=== PATIENT | female | born 1945 | race Caucasian/White ===

== ENCOUNTER 2017-07-20 09:28 | Outpatient (CLI) | payer MEDICARE ==
--- NOTE | 2017-07-20 11:54 | MMO ---
BILATERAL DIGITAL SCREENING MAMMOGRAMS: History: 71-year-old female presents for digital screening mammography. Comparison: 06-04-16, 05-02-15, 03-30-12 This study is interpreted with the assistance of computer aided detection. FINDINGS: Scattered areas of fibroglandular density are noted bilaterally. Stable typically benign calcificati ons. Stable parenchymal density asymmetry in the left breast. IMPRESSION: BIRADS category 2 - benign findings. Continued routine screening. POS: [facility]
== END 2017-07-20 09:29 | disposition home or self-care (01) ==
LOC: SCSMAMMO 09:28
PROVIDERS: ATTEND Nurse Practitioner Family
DX: Z12.31 Encounter for screening mammogram for malignant neoplasm of breast (principal)
CPT/HCPCS: 77067; G0202

== ENCOUNTER 2018-02-02 10:11 | Outpatient (CLI) | payer MEDICARE ==
--- NOTE | 2018-02-02 11:17 | RAD ---
TWO VIEWS OF BILATREAL HIPS: COMPARISON: None. HISTORY: Bilateral hip pain. FINDINGS: AP and frogleg views of both hips show no evidence of acute fracture or dislocation. No degenerative changes are seen. No focal soft tissue swelling is present. IMPRESSION: No evidence of acute osseous abnormality. POS: [facility]
--- NOTE | 2018-02-02 11:19 | RAD ---
LUMBAR SPINE 3 VIEWS: Date: 02/02/18 HISTORY: 72-year-old female with history of low back pain. FINDINGS: There is some generalized spondylosis with disc osteophytosis and facet arthrosis. There is moderate anterolisthesis of L4 on L5 of approximately 0.9 cm. Very mild anterolisthesis of L3 on L4. No eviden ce for acute compression fracture. No focal bone lesion. IMPRESSION: Anterolisthesis of L4 on L5, and minute anterolisthesis of L3 on L4. Consider follow-up standing flex ion and extension views for further assessment of this. Disc space narrowing at L4-L5. Generalized sp ondylosis. No acute fracture. POS: [facility]
--- NOTE | 2018-02-02 11:32 | RAD ---
RIGHT KNEE 4 VIEWS: Date: 02/02/18 COMPARISON: 07/29/16. HISTORY: Pain. FINDINGS: No significant joint effusion. Mild tricompartmental degenerative change. No fracture or malalignment . IMPRESSION: Mild tricompartmental degenerative change. POS: [facility]
== END 2018-02-02 10:12 | disposition home or self-care (01) ==
LOC: RAD-FRANK 10:11
PROVIDERS: ATTEND Nurse Practitioner Family
DX: M25.561 Pain in right knee (principal); M25.552 Pain in left hip; M25.551 Pain in right hip; M54.5 Low back pain; M47.896 Other spondylosis, lumbar region; M48.061 Spinal stenosis, lumbar region without neurogenic claudication; M43.16 Spondylolisthesis, lumbar region
CPT/HCPCS: 72100; 73521

== ENCOUNTER 2018-04-11 14:24 | Outpatient (CLI) | payer MEDICARE | END 2018-04-11 14:25 | disposition home or self-care (01) | LOC: CTENTCT 14:24 | PROVIDERS: ATTEND Specialist | DX: J32.8 Other chronic sinusitis (principal) | CPT/HCPCS: 70486 ==

== ENCOUNTER 2018-07-21 11:33 | Outpatient (CLI) | payer MEDICARE | END 2018-07-21 11:34 | disposition home or self-care (01) | LOC: BICMAMMO 11:33 | PROVIDERS: ATTEND Nurse Practitioner Family | DX: Z12.31 Encounter for screening mammogram for malignant neoplasm of breast (principal) | CPT/HCPCS: 77063; 77067 ==

== ENCOUNTER 2018-08-03 08:26 | Outpatient (CLI) | payer MEDICARE ==
--- NOTE | 2018-08-03 09:50 | BD ---
DEXA BONE MINERAL DENSITOMETRY STUDY: DATE: 08/03/2018. HISTORY: Asymptomatic postmenopausal state. FINDINGS: Lumbar Spine: BMD (g/cm2) L1 0.94 T-Score: -0.5 Z-Score: 1.5 L2 1.009 T-Score: -0.2 Z-Score: 1.9 L3 0.989 T-Score: -0.9 Z-Score: 1.4 L4 0.907 T-Score: -1.4 Z-Score: 0.9 L1-L4 0.958 T-Score: -0.8 Z-Score: 1.3 Femoral Neck: 0.756 T-Score: -0.8 Z-Score: 1.0 Total Femur: 1.056 T-Score: 0.9 Z-Score: 2.5 Impression: Normal bone mineralization of the lumbar spine and left femoral neck. POS: [facility]
== END 2018-08-03 08:27 | disposition home or self-care (01) ==
LOC: BICMAMMO 08:26
PROVIDERS: ATTEND Nurse Practitioner Family
DX: Z13.820 Encounter for screening for osteoporosis (principal); Z78.0 Asymptomatic menopausal state
CPT/HCPCS: 77080

== ENCOUNTER 2018-12-22 14:19 | Outpatient (CLI) | payer MEDICARE ==
--- NOTE | 2018-12-22 15:17 | RAD ---
F4 views lumbar spine: 12/22/2018 HISTORY: Back pain, fall, bilateral lower extremity radiculopathy FINDINGS: Neutral lateral imaging with weightbearing demonstrates anterolisthesis at L3-4 measuring 9 -10 mm and at L4-5 measuring approximately 1.7 cm. Facet hypertrophy noted at L3-4, L4-5, and L5-S1. The flexion imaging demonstrates anterolisthesis at L3-4 measuring 1 cm and at L4-5 measuring 1.4 cm. On the extension imaging the anterolisthesis at L3-4 measures 1.2 cm and at L4-5 measures 1.5 cm. No acute fracture. IMPRESSION: Significant anterolisthesis at L3-4 and L4-5 with associated facet hypertrophic change.
--- NOTE | 2018-12-22 15:45 | MRI ---
MR LUMBAR SPINE WITHOUT CONTRAST: 12/22/17 INDICATION: 73-year-old female with left sided radiculopathy with low back pain. COMPARISON: Prior MR lumbar spine dated 04/21/06 from [facility]. FINDINGS: As seen on the comparison examination, grade I anterolisthesis of L4 on L5. There has been interval d evelopment of grade I anterolisthesis of L3 on L4. The conus is seen to terminate at L1. The visualiz ed retroperitoneum and perivertebral soft tissues appear within normal limits. At L5-S1, there is a broad based bulge with moderate right and mild left facet joint degenerative fei nge which have mildly progressed from the prior exam. There is no appreciable central canal narrowing . There is mild right neural foraminal narrowing which appears stable due to the facet hypertrophy an d broad based disc bulge. At L4-5, there is advanced facet joint degenerative change and grade I anterolisthesis. There is a br oad based pseudobulge with ligamentum flavum hypertrophy and facet hypertrophy inducting moderate tushar tral canal narrowing which has mildly progressed. Loss of disc space height in addition to the listhe sis induces moderate right and mild left neural foraminal narrowing which have mildly progressed from the prior exam. At L3-4, there is a broad based disc bulge with a superimposed right paracentral disc protrusion caus ing severe central canal narrowing. This is new from the prior exam. There is advanced facet joint de generative change with grade I anterolisthesis. Constellation of findings induces moderate right and mild left neural foraminal narrowing. At L2-3, there is moderate facet joint degenerative change and broad based bulge with mild bilateral neural foraminal narrowing. Here is also mild central canal narrowing at this level. At L1-2, there is mild facet joint degenerative change and mild broad based bulge but no appreciable central canal or neural foraminal narrowing. At T12-L1, there is no appreciable central canal or neural foraminal narrowing. IMPRESSION: Severe central canal narrowing at L3-4, due to broad based disc bulge with a superimposed right parac entral disc protrusion. There is also worsening moderate right and mild left neural foraminal narrowi ng at L3-4. Worsening moderate central canal narrowing at L4-5 with worsening moderate right and mild left neural foraminal narrowing at L4-5. POS: [facility]
== END 2018-12-22 14:20 | disposition home or self-care (01) ==
LOC: BICMRI 14:19
PROVIDERS: ATTEND Surgery
DX: M51.16 Intervertebral disc disorders with radiculopathy, lumbar region (principal); M48.061 Spinal stenosis, lumbar region without neurogenic claudication; M43.16 Spondylolisthesis, lumbar region; M47.26 Other spondylosis with radiculopathy, lumbar region
CPT/HCPCS: 72120; 72148

== ENCOUNTER 2019-02-01 09:51 | Outpatient (CLI) | payer MEDICARE ==
--- NOTE | 2019-02-01 11:08 | CT ---
CT LUMBAR SPINE: INDICATIONS: Low back pain. Lumbar stenosis. Radiculopathy. Herniated nucleus pulposus. CORRELATION: MRI of lumbar spine from 12/22/2018. TECHNIQUE: Multiple axial tomograms obtained through the lumbar spine with multiplanar reconstruction. FINDINGS: The lumbar vertebrae maintain height. There is an anterolisthesis seen at L3-L4 and at L4-L5, both m easured at approximately 5 mm in the sagittal plane. Loss of disk space at both these levels. At L1-L2, no significant disk bulge or protrusion. Mild facet hypertrophy. No significant central c anal stenosis. At L2-L3, broad-based disk bulge. Facet and ligamentous hypertrophy. Moderate central canal stenosi s. At L3-L4, slight anterolisthesis, as noted above. Prominent, diffuse broad-based disk bulge/protrusi on, which was described on recent MRI of 12/22/2018. Facet and ligamentous hypertrophy. Severe cent ral canal stenosis. Bilateral foraminal stenosis secondary to diffuse disk bulge extending into the foramina and associated facet hypertrophy. At L4-L5, anterolisthesis, as noted above. Diffuse broad-based disk bulge. Facet and ligamentous hy pertrophy. Severe central canal stenosis. Bilateral foraminal stenosis secondary to diffuse disk bu lge and hypertrophic change. At L5-S1, broad-based bulge abuts both traversing S1 nerve roots, slightly more prominent on the righ t. This flattens the anterior thecal sac. Facet hypertrophy is prominent. Mild central canal steno sis. Mild right foraminal stenosis secondary to disk bulge and facet hypertrophy. IMPRESSION: Severe central canal stenosis at L3-L4 and at L4-L5, as described above. POS: [facility]
== END 2019-02-01 09:52 | disposition home or self-care (01) ==
LOC: BICCT 09:51
PROVIDERS: ATTEND Surgery
DX: M51.16 Intervertebral disc disorders with radiculopathy, lumbar region (principal); M54.5 Low back pain; M48.062 Spinal stenosis, lumbar region with neurogenic claudication; M43.16 Spondylolisthesis, lumbar region; G45.0 Vertebro-basilar artery syndrome
CPT/HCPCS: 72131

== ENCOUNTER 2019-04-30 13:20 | Outpatient (CLI) | payer MEDICARE ==
[2019-04-30 14:49] LABS: #Basophils 0.1 thou/uL (0.0-0.2); #Eosinphils 0.2 thou/uL (0.0-0.7); #Lymphocytes 1.8 thou/uL (1.20-3.40); #Monocytes 0.5 thou/uL (0.11-0.59); #Neutrophils 4.2 thou/uL (1.40-6.50); %Basophils 1.3 % (0.0-1.0); %Eosinophils 2.6 % (0.0-10.0); %Lymphocytes 26.4 % (21.0-51.0); %Monocytes 7.1 % (0.0-10.0); %Neutrophils 62.6 % (42.0-75.0); Hemoglobin 12.9 g/dL (12.0-16.0); Mean Corpuscular HGB CONC 32.9 g/dL (32.0-36.0); Mean Corpuscular Hemoglobin 28.8 pg (27.0-31.0); Mean Corpuscular Volume 87.6 fL (78.0-98.0); Mean Platelet Volume 6.4 fL (7.4-10.4); Platelet Count 372 thou/uL (130-400); RBC Distribution Width 11.6 % (11.5-14.5); Red Blood Cell (RBC) Count 4.49 mill/uL (4.20-5.40); White Blood Cell (WBC) Count 6.7 thou/uL (4.8-10.8)
--- NOTE | 2019-04-30 15:52 | RAD ---
PA CHEST: Date: 04/30/19 HISTORY: Preop. FINDINGS: Lung solis are clear. Heart and mediastinum appear normal. Vascular markings normal. IMPRESSION: Negative PA chest. POS: [facility]
== END 2019-04-30 13:21 | disposition home or self-care (01) ==
LOC: LABBT 13:20
PROVIDERS: ATTEND Internal Medicine Cardiovascular Disease
DX: Z01.818 Encounter for other preprocedural examination (principal); R94.39 Abnormal result of other cardiovascular function study
CPT/HCPCS: 71045; 85025; 93005; 93010

== ENCOUNTER 2019-05-04 05:52 | Day surgery (SDC) | payer MEDICARE ==
[2019-04-30 13:50] VITALS: BMI 36.6
[2019-05-04] MEDS ORDERED: Lidocaine 1% (PF) 30 ML VIAL ONE (06:36)
[2019-05-04] MEDS ORDERED: Fentanyl 100 MCG/2 ML VIAL ONE (06:37)
[2019-05-04] MEDS ORDERED: Midazolam HCl 2 mg/2 ml Vial ONE (06:37)
[2019-05-04 06:55] LABS: Cardiac Risk 3.1 (Less than 4.5)
[2019-05-04] MEDS ORDERED: Nitroglycerin 100MG/250ML BOT 250 ML ONE (07:11)
[2019-05-04] MEDS ORDERED: Heparin 10,000 UNITS/1 ML VIAL ONE (07:11)
[2019-05-04] MEDS ORDERED: Verapamil 5 MG/2 ML VIAL ONE (07:25)
[2019-05-04 07:31] LABS: Anion Gap 14 mmol/L (10-20); BUN (Urea Nitrogen) 11 mg/dL (9.8-20.1); Calc. Creatinine Clearance 92 mL/min (70-130); Calcium 10.6 mg/dL (7.8-10.44); Carbon Dioxide 26 mmol/L (23-31); Chloride 98 mmol/L (98-107); Estimated GFR-MDRD 71; Glucose 133 mg/dL (83-110); Potassium 4.2 mmol/L (3.5-5.1); Sodium 134 mmol/L (136-145)
[2019-05-04] MEDS ORDERED: Iopamidol 370 76% 100 ML VIAL ONE (14:17)
== END 2019-05-04 11:18 | disposition home or self-care (01) ==
LOC: CCL 05:52
PROVIDERS: ATTEND Internal Medicine Cardiovascular Disease
PROC: 4A023N7 Measurement of Cardiac Sampling and Pressure, Left Heart, Percutaneous Approach (ICD-10-PCS; principal; 2019-05-04)
PROC: B2111ZZ Fluoroscopy of Multiple Coronary Arteries using Low Osmolar Contrast (ICD-10-PCS; 2019-05-04)
DX: I25.10 Atherosclerotic heart disease of native coronary artery without angina pectoris (principal); K21.9 Gastro-esophageal reflux disease without esophagitis; E11.9 Type 2 diabetes mellitus without complications; E78.5 Hyperlipidemia, unspecified; I10 Essential (primary) hypertension; Z79.84 Long term (current) use of oral hypoglycemic drugs; Z79.899 Other long term (current) drug therapy; Z91.048 Other nonmedicinal substance allergy status
CPT/HCPCS: 80048; 80061; 93458; 93798; 99152; C1769; J1644; J2001; J2250; J3010; Q9967

== ENCOUNTER 2019-05-18 10:50 | Inpatient (IN) | payer MEDICARE ==
[2019-05-22] MEDS ORDERED: Fentanyl 100 MCG/2 ML VIAL ONE ×5 (11:11→17:21)
[2019-05-22] MEDS ORDERED: Sodium Chloride 0.9% 10 ML ONE (11:45)
[2019-05-22] MEDS ORDERED: Thrombin 5000 UNITS/5 ML VIAL ONE ×2 (11:45→14:57)
[2019-05-22] MEDS ORDERED: PACU-Morphine 4MG/ML VIAL SLOW IVP PRN (16:17)
[2019-05-22] MEDS ORDERED: Ondansetron HCl/PF 4 MG/2 ML Vial IVP PRN (16:17)
[2019-05-22] MEDS ORDERED: Morphine Sulfate 2 MG/ML SYRINGE SLOW IVP PRN (16:17)
[2019-05-22] MEDS ORDERED: Promethazine HCl 25 MG/ML VIAL IM PRN (16:17)
[2019-05-22] MEDS ORDERED: Promethazine HCl 25 MG/ML VIAL SLOW IVP PRN (16:17)
[2019-05-22] MEDS ORDERED: HYDROmorphone 2 MG/ML VIAL SLOW IVP PRN (16:17)
[2019-05-22] MEDS ORDERED: Milk Of Magnesia 30 ML UDCUP PO PRN (16:44)
[2019-05-22] MEDS ORDERED: Bisacodyl 10 MG SUPP PR PRN (16:44)
[2019-05-22] MEDS ORDERED: Mag-Al 1200 mg/1200 mg/30 ML UDCUP PO PRN (16:44)
[2019-05-22] MEDS ORDERED: traMADol HCl 50 MG TAB PO PRN (16:44)
[2019-05-22] MEDS ORDERED: Acetaminophen/Codeine 30-300mg Tablet PO PRN (16:44)
[2019-05-22] MEDS ORDERED: Fleet Enema 133 ML BOT PR PRN (16:44)
[2019-05-22] MEDS ORDERED: tiZANidine HCl 4 MG TAB PO PRN (16:44)
[2019-05-22] MEDS ORDERED: diphenhydrAMINE 12.5 MG/5 ML UDCUP PO PRN (16:51)
[2019-05-22] MEDS ORDERED: HYDROmorphone 2 MG/ML VIAL ONE (17:03)
[2019-05-22] MEDS ORDERED: HYDROmorphone 0.5 MG/0.5 ML SYRINGE ONE (17:03)
[2019-05-22] MEDS ORDERED: Vecuronium 10 MG VIAL ONE (17:10)
[2019-05-22] MEDS ORDERED: PHENYLEPHRINE-NS 100 MCG/ML 10 ML SYRINGE ONE (17:10)
[2019-05-22] MEDS ORDERED: Rocuronium Bromide 10 MG/ML (10ML VIAL) ONE (17:10)
[2019-05-22] MEDS ORDERED: Dexamethasone 20 MG/5 ML VIAL ONE (17:10)
[2019-05-22] MEDS ORDERED: Ondansetron PF 4 MG/2 ML Vial ONE ×2 (17:10→18:52)
[2019-05-22] MEDS ORDERED: Glycopyrrolate 0.2 MG/ML 5 ML SYRINGE ONE (17:10)
[2019-05-22] MEDS ORDERED: PROPOFOL 200 MG/20 ML VIAL ONE (17:10)
[2019-05-22] MEDS ORDERED: ePHEDrine 50 MG/ML VIAL ONE (17:10)
[2019-05-22] MEDS ORDERED: Morphine 4 MG/ML VIAL ONE (17:22)
[2019-05-22] MEDS ORDERED: Promethazine HCl 25 MG/ML VIAL ONE (17:23)
[2019-05-22] MEDS ORDERED: Scopolamine 1.5 mg/72 hour Patch ONE (17:55)
[2019-05-22] MEDS ORDERED: Fluticasone Propionate Nasal Spray 16 gm Bottle NASAL PRN (18:15)
[2019-05-22] MEDS ORDERED: CEFAZOLIN 2 GM in Premix Bag 1 BAG IVPB SCH (19:00)
[2019-05-22 20:06] VITALS: BMI 36.0
[2019-05-22] MEDS: CEFAZOLIN 2 GM in Premix Bag 1 BAG IVPB SCH (20:23)
[2019-05-22] MEDS: Sodium Chloride 0.9% 1,000 ML IV SCH (20:23)
[2019-05-22] MEDS: Carvedilol 6.25 MG TAB PO SCH (22:10)
[2019-05-22] MEDS: Gabapentin 300 MG CAP PO SCH (22:11)
[2019-05-22] MEDS: HYDROcodone/Acetaminophen 7.5/325 mg Tablet PO PRN (22:32)
[2019-05-22] MEDS ORDERED: Dextrose 5% in Water 1,000 ML IV PRN (22:46)
[2019-05-22] MEDS ORDERED: HumaLOG 300 UNITS/3 ML VIAL SC PRN (22:46)
[2019-05-22] MEDS ORDERED: Dextrose 50% Abboject 50 ML SYRINGE SLOW IVP PRN (22:46)
--- NOTE | 2019-05-22 23:55 | PDOC.HOSPP ---
- Subjective Encounter Date: 05/22/19 Encounter Time: 23:53 Subjective: Patient seen and examined. No new complaints. No overnight events - Objective Vital Signs & Weight: Vital Signs (12 hours) Temp Pulse Ox 05/22/19 20:00 99 05/22/19 19:45 97.9 F Weight Weight 196 lb 13.965 oz Most Recent Monitor Data Heart Rate from ECG 77 NIBP 121/71 NIBP BP-Mean 87 Respiration from ECG 14 SpO2 93 I&O: 05/21/19 05/22/19 05/23/19 06:59 06:59 06:59 Intake Total 50 Output Total 275 Balance -225 Additional Labs: Accuchecks 05/22/19 20:28 POC Glucose 225 H EKG Reviewed by me: Yes (NSR) Hospitalist ROS - Review of Systems Constitutional: denies: fever, chills, sweats, weakness, malaise, other Eyes: denies: pain, vision change, conjunctivae inflammation, eyelid inflammation, redness, other ENT: denies: ear pain, ear discharge, nose pain, nose discharge, nose congestion , mouth pain, mouth swelling, throat pain, throat swelling, other Respiratory: denies: cough, dry, shortness of breath, hemoptysis, SOB with excertion, pleuritic pain, sputum, wheezing, other Cardiovascular: denies: chest pain, palpitations, orthopnea, paroxysmal noc. dyspnea, edema, light headedness, other Gastrointestinal: denies: nausea, vomitting, abdominal pain, diarrhea, constipation, melena, hematochezia, other Genitourinary: denies: dysuria, frequency, incontinence, hematuria, retention, other Musculoskeletal: denies: neck pain, shoulder pain, arm pain, back pain, hand pain, leg pain, foot pain, other Skin: denies: rash, lesions, alek, bruising, other - Medication Medications: Active Medications Generic Name Dose Route Start Last Admin Trade Name Freq PRN Reason Stop Dose Admin Hydrocodone Bitart/Acetaminophen 2 tab 05/22/19 16:44 05/22/19 22:32 [place] 7.5/325 PO 1 tab Q4H PRN Administration Moderate Pain (4-6) Carvedilol 6.25 mg 05/22/19 21:00 05/22/19 22:10 Coreg PO Not Given BID [facility] Cholecalciferol 5,000 units 05/22/19 21:00 05/22/19 22:11 Vitamin D3 PO Not Given BID [facility] Gabapentin 600 mg 05/22/19 21:00 05/22/19 22:11 Neurontin PO Not Given TID [facility] Sodium Chloride 1,000 mls @ 75 mls/hr 05/22/19 16:45 05/22/19 20:23 Normal Saline 0.9% IV Not Given .[id number] [facility] Cefazolin Sodium/Dextrose 2 gm 50 mls @ 100 mls/hr 05/22/19 20:00 05/22/19 20 :23 / Device IVPB 05/23/19 04:29 50 mls 0400,1200,2000 [facility] Administration - Exam General Appearance: NAD, awake alert Eye: PERRL, anicteric sclera ENT: normocephalic atraumatic, no oropharyngeal lesions, moist mucosa Neck: supple, symmetric, no JVD, no thyromegaly Heart: RRR, no murmur, no gallops, no rubs, normal peripheral pulses Respiratory: CTAB, no wheezes, no rales, no ronchi, normal chest expansion Gastrointestinal: soft, non-tender, non-distended, normal bowel sounds Extremities: no cyanosis, no clubbing, no edema Skin: normal turgor, no lesions Neurological: CN's grossly intact, normal sensation to touch Musculoskeletal: normal tone, normal strength, no muscle wasting Psychiatric: normal affect, normal behavior, A&O x 3 Hosp A/P (1) S/P lumbar laminectomy Code(s): Z98.890 - OTHER SPECIFIED POSTPROCEDURAL STATES Status: Acute (2) Anxiety and depression Code(s): F41.9 - ANXIETY DISORDER, UNSPECIFIED; F32.9 - MAJOR DEPRESSIVE DISORDER, SINGLE EPISODE, UNSPECIFIED Status: Chronic (3) Diabetes type 2, controlled Code(s): E11.9 - TYPE 2 DIABETES MELLITUS WITHOUT COMPLICATIONS Status: Chronic (4) Dyslipidemia Code(s): E78.5 - HYPERLIPIDEMIA, UNSPECIFIED Status: Chronic (5) GERD (gastroesophageal reflux disease) Code(s): K21.9 - GASTRO-ESOPHAGEAL REFLUX DISEASE WITHOUT ESOPHAGITIS Status: Chronic (6) Hypertension Code(s): I10 - ESSENTIAL (PRIMARY) HYPERTENSION Status: Chronic (7) Lumbar stenosis with neurogenic claudication Code(s): M48.062 - SPINAL STENOSIS, LUMBAR REGION WITH NEUROGENIC CLAUDICATION Status: Chronic (8) Obesity (BMI 30-39.9) Code(s): E66.9 - OBESITY, UNSPECIFIED Status: Chronic (9) Osteoarthritis Code(s): M19.90 - UNSPECIFIED OSTEOARTHRITIS, UNSPECIFIED SITE Status: Chronic - Plan old records reviewed/req, dunn catheter, PT/OT, [employer] teacher, DVT proph w/ SCDs Home medication reconciled hyperglycemia protocol treatment code status- full code medication reviewed as above symptomatic treatment
[2019-05-23] MEDS: Morphine 2 MG/ML SYRINGE SLOW IVP PRN ×3 (01:16→21:19)
[2019-05-23] MEDS: CEFAZOLIN 2 GM in Premix Bag 1 BAG IVPB SCH (04:07)
[2019-05-23 05:50] LABS: #Lymphocytes 0.9 thou/uL (1.20-3.40); #Monocytes 0.8 thou/uL (0.11-0.59); #Neutrophils 8.7 thou/uL (1.40-6.50); %Basophils 0.2 % (0.0-1.0); %Eosinophils 0.1 % (0.0-10.0); %Lymphocytes 8.3 % (21.0-51.0); %Monocytes 7.6 % (0.0-10.0); %Neutrophils 83.9 % (42.0-75.0); Mean Corpuscular HGB CONC 33.6 g/dL (32.0-36.0); Mean Corpuscular Hemoglobin 29.8 pg (27.0-31.0); Mean Corpuscular Volume 88.6 fL (78.0-98.0); Mean Platelet Volume 6.3 fL (7.4-10.4); Platelet Count 290 thou/uL (130-400); RBC Distribution Width 11.6 % (11.5-14.5); Red Blood Cell (RBC) Count 3.34 mill/uL (4.20-5.40); White Blood Cell (WBC) Count 10.4 thou/uL (4.8-10.8)
[2019-05-23] MEDS: Sodium Chloride 0.9% 1,000 ML IV SCH ×2 (06:04→19:32)
[2019-05-23 06:09] LABS: Anion Gap 12 mmol/L (10-20); BUN (Urea Nitrogen) 8 mg/dL (9.8-20.1); Calc. Creatinine Clearance 102 mL/min (70-130); Calcium 8.9 mg/dL (7.8-10.44); Carbon Dioxide 26 mmol/L (23-31); Chloride 101 mmol/L (98-107); Estimated GFR-MDRD 81; Glucose 143 mg/dL (83-110); Potassium 4.5 mmol/L (3.5-5.1); Sodium 134 mmol/L (136-145)
--- NOTE | 2019-05-23 08:09 | PDOC.PULCN ---
Pulmonology Consult: HPI - Date of Consult Date: 05/23/19 Time: 08:09 - Consult Details Reason for Consult: ccu admission, s/p laminectomy Requesting Physician: Jono DALE - History of Present Illness HPI: Mrs. King is a 73YOF with a PMH significant for DMII, HTN and a h/o lumbar stenosis w/ neurogenic claudication who was admitted to the CCU overnight following a lumbar laminectomy. Per nursing, the patient received numerous sedating medications in the PACU including dilaudid, fentanyl and phenergan which caused her respirations to slow to the point that neurosurgery felt it best to have her closely monitored in the CCU overnight. She was also initially requiring 2L NC to maintain adequate O2 saturations. She denies any current respiratory issues such as dyspnea, wheezing or cough. Says pain is well controlled and currently rates it as 5/10 in severity. Otherwise, no complaints other than mild leg cramping 2/2 her SCDs. Pulmonology Consult: ROS - Review of Systems All systems: reviewed and no additional remarkable complaints except as stated ( in the HPI.) Pulmonology Consult: PMH Source: patient Past Medical History: DMII, HTN, HLD, lumbar stenosis w/ neurogenic claudication, dry eyes - Family History Family history: reviewed and not pertinent - Social History Smoking Status: Never smoker Alcohol Use: rarely Drug Use History: none Living Situation: Pulmonology Consult: Meds - Medications MAR Reviewed: Yes Medications: Current Medications Acetaminophen (Tylenol) 650 mg PO Q4H PRN PRN Reason: Headache/Fever or Pain Hydrocodone Bitart/Acetaminophen ([place]mos 7.5/325) 2 tab PO Q4H PRN PRN Reason: Moderate Pain (4-6) Last Admin: 05/22/19 22:32 Dose: 1 tab Hydrocodone Bitart/Acetaminophen (Cosmos 7.5/325) 1 tab PO Q4H PRN PRN Reason: Mild Pain (1-3) Al Hydroxide/Mg Hydroxide (Maalox) 30 ml PO Q4H PRN PRN Reason: Indigestion Amlodipine Besylate (Norvasc) 10 mg PO DAILY [facility] Ascorbic Acid (Vitamin C) 500 mg PO DAILY [facility] Atorvastatin Calcium (Lipitor) 10 mg PO DAILY [facility] Bisacodyl (Dulcolax) 10 mg NE Q12H PRN PRN Reason: Constipation Calcium Carbonate (Caltrate) 600 mg PO DAILY [facility] Carvedilol (Coreg) 6.25 mg PO BID [facility] Last Admin: 05/22/19 22:10 Dose: Not Given Cholecalciferol (Vitamin D3) 5,000 units PO BID [facility] Last Admin: 05/22/19 22:11 Dose: Not Given Dextrose/Water (Dextrose 50%) 25 gm SLOW IVP PRN PRN PRN Reason: Hypoglycemia Diphenhydramine HCl (Benadryl) 10 mg PO HS PRN PRN Reason: Insomnia Escitalopram Oxalate (Lexapro) 20 mg PO DAILY [facility] Fluticasone Propionate (Flonase Nasal [place]) 0 gm NASAL DAILY PRN PRN Reason: Allergies Gabapentin (Neurontin) 600 mg PO TID [facility] Last Admin: 05/22/19 22:11 Dose: Not Given Glucagon (Glucagon) 1 mg IM PRN PRN PRN Reason: Hypoglycemia Sodium Chloride (Normal Saline 0.9%) 1,000 mls @ 75 mls/hr IV .[id number] [facility] Last Admin: 05/23/19 06:04 Dose: 1,000 mls Dextrose/Water (D5w) 1,000 mls @ 0 mls/hr IV .Q0M PRN PRN Reason: Hypoglycemia Insulin Human Lispro (Humalog) 0 units SC .MILD SLIDING SCALE PRN PRN Reason: Mild Correctional Scale Insulin Human Lispro (Humalog) 0 units SC .BEDTIME SLIDING SC PRN PRN Reason: Bedtime Correctional Scale Lisinopril (Zestril) 2.5 mg PO DAILY [facility] Loratadine (Claritin) 10 mg PO DAILY [facility] Magnesium Hydroxide (Milk Of Magnesium) 30 ml PO Q12H PRN PRN Reason: Constipation Magnesium Oxide (Magnesium Oxide) 250 mg PO DAILY [facility] Metformin HCl (Glucophage) 500 mg PO [facility] Morphine Sulfate (Morphine) 2 mg SLOW IVP Q1H PRN PRN Reason: Severe Pain (7-10) Last Admin: 05/23/19 01:16 Dose: 2 mg Ondansetron HCl (Zofran) 4 mg IVP Q6H PRN PRN Reason: Nausea Pantoprazole Sodium (Protonix) 40 mg PO BID [facility] Sodium Chloride (Flush - Normal Saline) 10 ml IVF PRN PRN PRN Reason: Saline Flush Last Admin: 05/23/19 01:17 Dose: 10 ml Tizanidine HCl (Zanaflex) 4 mg PO TID PRN PRN Reason: Muscle Spasm - Allergies Allergies/Adverse Reactions: Allergies Allergy/AdvReac Type Severity Reaction Status Date / Time GLYCERIN Allergy BLOATING, Uncoded 05/22/19 20:04 GAS, DIARRHEA SUGAR ALCOHOL Allergy GAS, Uncoded 05/22/19 20:04 BLOATING, DIARRHEA Pulmonology Consult: PE - Physical Exam Constitutional: NAD HEENT: moist MMs, sclera anicteric Neck: supple, full ROM Cardiovascular: RRR Deviation from normal: 2/6 systolic flow murmur heard best @ R sternal border Respiratory: clear to auscultation anteriorly, clear to auscultation bilaterally. negative: accessory muscle use, chest wall tenderness, decreased breath sounds, prolonged expiratory phase, rales, respiratory distress, rhonchi , stridor, wheezes Gastrointestinal: soft, non-tender, no distention Musculoskeletal: no edema, pulses present Neurological: non-focal, normal sensation, moves all 4 limbs Psychiatric: normal affect, A&O x 3 Skin: no rash, normal turgor, cap refill <2 seconds Pulmonology Consult: Results - Labs Result Diagrams: 05/23/19 05:41 05/23/19 05:41 - EKG Data EKG Interpreted by Myself EKG shows normal: sinus rhythm Rate: normal Pulmonology Consult: A/P - Problem (1) S/P lumbar laminectomy Current Visit: Yes Code(s): Z98.890 - OTHER SPECIFIED POSTPROCEDURAL STATES Status: Acute (2) Anxiety and depression Current Visit: Yes Code(s): F41.9 - ANXIETY DISORDER, UNSPECIFIED; F32.9 - MAJOR DEPRESSIVE DISORDER, SINGLE EPISODE, UNSPECIFIED Status: Chronic (3) Diabetes type 2, controlled Current Visit: Yes Code(s): E11.9 - TYPE 2 DIABETES MELLITUS WITHOUT COMPLICATIONS Status: Chronic (4) Dyslipidemia Current Visit: Yes Code(s): E78.5 - HYPERLIPIDEMIA, UNSPECIFIED Status: Chronic (5) GERD (gastroesophageal reflux disease) Current Visit: Yes Code(s): K21.9 - GASTRO-ESOPHAGEAL REFLUX DISEASE WITHOUT ESOPHAGITIS Status: Chronic (6) Hypertension Current Visit: Yes Code(s): I10 - ESSENTIAL (PRIMARY) HYPERTENSION Status: Chronic (7) Lumbar stenosis with neurogenic claudication Current Visit: Yes Code(s): M48.062 - SPINAL STENOSIS, LUMBAR REGION WITH NEUROGENIC CLAUDICATION Status: Chronic (8) Obesity (BMI 30-39.9) Current Visit: Yes Code(s): E66.9 - OBESITY, UNSPECIFIED Status: Chronic - Time Time: 50% of the time was spent in coordination of care (as documented) at patient's floor/unit and/or counseling patient. - Plan Plan: 73YOF with a PMH significant for HTN, DMII, and lumbar stenosis w/ neurogenic claudication who is post-op day #1 s/p a lumbar laminectomy admitted to the CCU for respiratory depression from oversedation following her procedure. 1. Post-op day #1 s/p lumbar laminectomy: - Continue routine post-op protocol per neurosurgery including adequate pain control, SCDs, PT, and incentive spirometry to prevent post-op complications. 2. HTN: BP well-controlled since getting to the unit. Resume home meds. 3. DMII: CC diet, home meds, SSI & ACHS accuchecks. 4. HLD: Home meds. 5. GERD: Home meds. 6. Anxiety/Depression: Home meds. Dispo: Patient is stable to move to the surgical floor today. GI PPX: Protonix VTE PPX: SCDs IVFs: NS @ 75mL/hr Abx: None CODE STATUS: FULL CODE
[2019-05-23] MEDS: metFORMIN 500 MG TAB PO SCH (08:15)
[2019-05-23] MEDS: Amlodipine 10 MG TAB PO SCH (08:15)
[2019-05-23] MEDS: Ascorbic Acid 500 mg Chewable Tablet PO SCH (08:16)
[2019-05-23] MEDS: Calcium Carbonate 600 MG TAB PO SCH (08:17)
[2019-05-23] MEDS: Carvedilol 6.25 MG TAB PO SCH ×2 (08:17→20:12)
[2019-05-23] MEDS: Gabapentin 300 MG CAP PO SCH ×3 (08:19→20:13)
[2019-05-23] MEDS: Loratadine 10 MG TAB PO SCH (08:20)
[2019-05-23] MEDS ORDERED: Atorvastatin Calcium 10 MG TAB PO SCH (09:00)
[2019-05-23] MEDS ORDERED: Escitalopram Oxalate 20 mg Tablet PO SCH (09:00)
[2019-05-23] MEDS ORDERED: Lisinopril 2.5 MG TAB PO SCH (09:00)
[2019-05-23] MEDS ORDERED: Magnesium Oxide 250 MG TAB PO SCH (09:00)
--- NOTE | 2019-05-23 09:56 | PRG ---
DATE OF SERVICE: 05/23/2019 Ms. King is postoperative day 1 following lumbar laminectomy and fusion. She did well intraoperatively, but took quite some time to emerge from anesthesia this morning. She is moving her lower extremities without deficit. Her hemoglobin is 10. Her leg pain has improved compared to before surgery, although incisional pain is obviously present. We will transfer out of the ICU and begin mobilizing her. Job ID: [id number]
--- NOTE | 2019-05-23 11:56 | OP ---
DATE OF PROCEDURE: 05/22/2019 LOCATION: OR 11. WOUND CLASSIFICATION: Type 1 wound. TEST LEAD: Jono Montgomery PA-C PREPROCEDURE DIAGNOSIS: Multilevel lumbar stenosis with lumbar radiculopathy and lumbar spondylolisthesis. POSTPROCEDURE DIAGNOSIS: Multilevel lumbar stenosis with lumbar radiculopathy and lumbar spondylolisthesis. PROCEDURES PERFORMED: 1. L3-L4, L4-L5 laminectomies, partial facetectomies, and foraminotomies over the L3, L4, and L5 nerve roots. 2. Right L3-L4 diskectomy. 3. L3, L4, and L5 screw lanie fixation for stabilization of mobile spondylolisthesis L3-L4, L4-L5. 4. Posterior lateral fusion L3-L4, L4-L5 with local bone autograft obtained with same incision allograft and BMP. DESCRIPTION OF PROCEDURE: After informed consent was obtained from the patient, the patient was brought to the OR. Proper patient, pause, and identification were carried out. She was placed under excellent general endotracheal anesthesia and positioned prone on the OR table. All appropriate points were padded. We identified the L3, L4, and L5 dorsal spines. A linear bernie was drawn out. This region was sterilely cleansed, prepared, and draped. Proper patient, pause, and identification were carried out. The wound was then opened with combination of sharp, monopolar, and blunt dissection of the L3, L4, and L5 dorsal spines and lamina. Facet complexes and transverse processes were all identified. Localization film confirmed our area of interest. We then performed L3-L4, L4-L5 laminectomies, partial facetectomies, and foraminotomies and a right L3-L4 diskectomy with excellent decompression of the common dural tube, the L3, the L4, and the L5 nerve roots. We then turned our attention with gross and fluoroscopic visualization to placement of screws and then subsequent to that rods for stabilization with final tightening. Local bone autograft obtained with same incision allograft and BMP was then laid over the decorticated posterolateral regions for arthrodesis. Copious irrigation occurred throughout as did maximizing hemostasis. DuraSeal was placed over the dura for protection, although there was no CSF leak and the wound was then closed in anatomic layers following sprinkling of vancomycin powder. The patient then emerged from anesthesia quite slowly. Job ID: [id number]
[2019-05-23] MEDS: HumaLOG 300 UNITS/3 ML VIAL SC PRN (16:25)
[2019-05-23] MEDS: Ondansetron PF 4 MG/2 ML Vial IVP PRN ×2 (16:47→21:23)
--- NOTE | 2019-05-23 17:27 | PDOC.HOSPP ---
- Subjective Encounter Date: 05/23/19 Encounter Time: 15:45 Subjective: Ms. King was seen today in follow-up post lumbar laminectomy. She notes some burning pain in her back, and some leg cramping, but this has improved after medication. - Objective Vital Signs & Weight: Vital Signs (12 hours) Temp Pulse Pulse BP BP BP Pulse Ox 05/23/19 16:00 100.2 F H 05/23/19 12:00 99.2 F 05/23/19 09:53 94 81 149/62 H 89/54 L 05/23/19 08:17 149/74 H 05/23/19 08:15 149/74 H 05/23/19 08:00 98.2 F 05/23/19 07:18 92 L Pulse Ox Pulse Ox 05/23/19 16:00 05/23/19 12:00 05/23/19 09:53 93 L 97 05/23/19 08:17 05/23/19 08:15 05/23/19 08:00 05/23/19 07:18 Weight Weight 196 lb 13.965 oz Most Recent Monitor Data Heart Rate from ECG 83 NIBP 133/55 NIBP BP-Mean 81 Respiration from ECG 15 SpO2 97 I&O: 05/22/19 05/23/19 05/24/19 06:59 06:59 06:59 Intake Total 780 870 Output Total 545 950 Balance 235 -80 Result Diagrams: 05/23/19 05:41 05/23/19 05:41 Additional Labs: Accuchecks 05/23/19 05/23/19 05/22/19 06:12 00:26 20:28 POC Glucose 135 H 180 H 225 H Hospitalist ROS - Medication Medications: Active Medications Generic Name Dose Route Start Last Admin Trade Name Freq PRN Reason Stop Dose Admin Hydrocodone Bitart/Acetaminophen 2 tab 05/22/19 16:44 05/22/19 22:32 [place] 7.5/325 PO 1 tab Q4H PRN Administration Moderate Pain (4-6) Amlodipine Besylate 10 mg 05/23/19 09:00 05/23/19 08:15 Norvasc PO 10 mg DAILY AMBAR Administration Ascorbic Acid 500 mg 05/23/19 09:00 05/23/19 08:16 Vitamin C PO 500 mg DAILY AMBAR Administration Calcium Carbonate 600 mg 05/23/19 09:00 05/23/19 08:17 Caltrate PO 600 mg DAILY AMBAR Administration Carvedilol 6.25 mg 05/22/19 21:00 05/23/19 08:17 Coreg PO 6.25 mg BID AMBAR Administration Cholecalciferol 5,000 units 05/22/19 21:00 05/23/19 08:17 Vitamin D3 PO 5,000 units BID AMBAR Administration Gabapentin 600 mg 05/22/19 21:00 05/23/19 14:55 Neurontin PO 600 mg TID AMBAR Administration Sodium Chloride 1,000 mls @ 75 mls/hr 05/22/19 16:45 05/23/19 06:04 Normal Saline 0.9% IV 1,000 mls .[id number] AMBAR Administration Insulin Human Lispro 0 units 05/22/19 22:46 05/23/19 16:25 Humalog SC 2 unit .MILD SLIDING SCALE PRN Administration Mild Correctional Scale Loratadine 10 mg 05/23/19 09:00 05/23/19 08:20 Claritin PO 10 mg DAILY AMBAR Administration Metformin HCl 500 mg 05/23/19 08:00 05/23/19 08:15 Glucophage PO 500 mg QAM-WM AMBAR Administration Morphine Sulfate 2 mg 05/22/19 16:44 05/23/19 16:42 Morphine SLOW IVP 2 mg Q1H PRN Administration Severe Pain (7-10) Ondansetron HCl 4 mg 05/22/19 16:44 05/23/19 16:47 Zofran IVP 4 mg Q6H PRN Administration Nausea Pantoprazole Sodium 40 mg 05/23/19 09:00 05/23/19 08:20 Protonix PO 40 mg BID AMBAR Administration Sodium Chloride 10 ml 05/22/19 16:44 05/23/19 01:17 Flush - Normal Saline IVF 10 ml PRN PRN Administration Saline Flush Tizanidine HCl 4 mg 05/22/19 16:44 05/23/19 09:32 Zanaflex PO 4 mg TID PRN Administration Muscle Spasm - Exam Eye: PERRL, anicteric sclera Heart: RRR, no murmur, no gallops, no rubs, normal peripheral pulses Respiratory: CTAB, no wheezes, no rales, no ronchi, normal chest expansion, no tachypnea, normal percussion Gastrointestinal: soft, non-tender, non-distended, normal bowel sounds, no palpable masses, no hepatomegaly, no splenomegaly, no bruit Extremities: no cyanosis, no clubbing, 1+ LE edema (trace lower extremity edema) Hosp A/P (1) Diabetes type 2, controlled Code(s): E11.9 - TYPE 2 DIABETES MELLITUS WITHOUT COMPLICATIONS Status: Chronic (2) S/P lumbar laminectomy Code(s): Z98.890 - OTHER SPECIFIED POSTPROCEDURAL STATES Status: Acute (3) Dyslipidemia Code(s): E78.5 - HYPERLIPIDEMIA, UNSPECIFIED Status: Chronic (4) GERD (gastroesophageal reflux disease) Code(s): K21.9 - GASTRO-ESOPHAGEAL REFLUX DISEASE WITHOUT ESOPHAGITIS Status: Chronic (5) Hypertension Code(s): I10 - ESSENTIAL (PRIMARY) HYPERTENSION Status: Chronic - Plan * DM- blood glucose is stable * HTN- blood pressure is stable * Lumbar Laminectomy- symptom management per NS
[2019-05-23] MEDS: HYDROcodone/Acetaminophen 7.5/325 mg Tablet PO PRN (19:31)
[2019-05-23] MEDS: Magnesium Oxide 250 MG TAB PO SCH (20:11)
[2019-05-23] MEDS: Lisinopril 2.5 MG TAB PO SCH (20:12)
[2019-05-23] MEDS: Atorvastatin Calcium 10 MG TAB PO SCH (20:12)
[2019-05-23] MEDS: Escitalopram Oxalate 20 mg Tablet PO SCH (20:15)
[2019-05-24] MEDS: HYDROcodone/Acetaminophen 7.5/325 mg Tablet PO PRN ×2 (01:13→11:59)
[2019-05-24] MEDS: Acetaminophen 325 MG TAB PO PRN ×2 (06:11→14:48)
[2019-05-24] MEDS: metFORMIN 500 MG TAB PO SCH (08:09)
[2019-05-24] MEDS: Amlodipine 10 MG TAB PO SCH (08:09)
[2019-05-24] MEDS: Ascorbic Acid 500 mg Chewable Tablet PO SCH (08:10)
[2019-05-24] MEDS: Calcium Carbonate 600 MG TAB PO SCH (08:10)
[2019-05-24] MEDS: Carvedilol 6.25 MG TAB PO SCH ×2 (08:10→21:14)
[2019-05-24] MEDS: Gabapentin 300 MG CAP PO SCH ×3 (08:11→21:05)
[2019-05-24] MEDS: Loratadine 10 MG TAB PO SCH (08:11)
--- NOTE | 2019-05-24 09:58 | ULT ---
EXAM: Bilateral lower extremity venous Doppler US HISTORY: bilateral lower extremity edema and pain, postsurgery immobility FINDINGS: Grayscale, color-flow, Doppler evaluation, spectral analysis of the bilateral lower extremities venou s structures is performed with 2-D imaging. The bilateral common femoral, superficial femoral, popliteal, posterior tibial, proximal greater saphenous and profunda femoral veins are imaged. There is normal luminal compressibility, flow, and augmentation in the visualized deep venous structu res of the bilateral lower extremities. IMPRESSION: No evidence of a deep vein thrombosis in either lower extremity.
[2019-05-24] MEDS: Sodium Chloride 0.9% 1,000 ML IV SCH (11:32)
--- NOTE | 2019-05-24 13:42 | PRG ---
DATE OF SERVICE: 05/24/2019 Ms. King is postoperative day #2, having undergone multilevel lumbar fusion. The patient states her back is hurting more today, but she has had improvement in her bilateral leg cramping. Although, she denies any shortness of breath or chest pain. She feels as though her lungs are very heavy because she has been sitting in bed so much. She has been using her incentive spirometry. She still has good strength in the bilateral lower extremities. She is still in the ICU as we are awaiting for a bed elsewhere, but otherwise she looks as though she is improving. She again complains of incisional back pain. We will continue to work on some pain control. I have also ordered a scopolamine patch to see if this will help some with her nausea. Please call with any changes in the patient's neurologic status. I should note that the patient had an ultrasound of the bilateral legs today and it was negative for DVT. Job ID: [id number]
--- NOTE | 2019-05-24 19:54 | PDOC.HOSPP ---
- Subjective Encounter Date: 05/24/19 Encounter Time: 19:35 Subjective: f/u for - Objective Vital Signs & Weight: Vital Signs (12 hours) Temp Pulse Pulse Pulse BP BP BP 05/24/19 16:00 98.2 F 05/24/19 14:49 82 77 136/53 L 135/49 L 05/24/19 12:00 98.1 F 05/24/19 10:50 69 118/55 L 05/24/19 08:10 117/56 L 05/24/19 08:09 88 117/56 L 05/24/19 08:00 Pulse Ox 05/24/19 16:00 05/24/19 14:49 05/24/19 12:00 05/24/19 10:50 05/24/19 08:10 05/24/19 08:09 05/24/19 08:00 96 Weight Weight 196 lb 13.965 oz Most Recent Monitor Data Heart Rate from ECG 83 NIBP 115/70 NIBP BP-Mean 85 Respiration from ECG 15 SpO2 96 I&O: 05/23/19 05/24/19 05/25/19 06:59 06:59 06:59 Intake Total 780 3644 2246 Output Total 545 3300 1800 Balance 235 344 446 Result Diagrams: 05/23/19 05:41 05/23/19 05:41 Additional Labs: Accuchecks 05/24/19 05/24/19 05/23/19 16:57 11:28 21:24 POC Glucose 137 H 147 H 155 H 05/23/19 05/23/19 16:08 11:18 POC Glucose 150 H 148 H Radiology Reviewed by me: Yes (LE venous dopp - negative bilat) EKG Reviewed by me: Yes (Tele - SR) Hospitalist ROS - Medication Medications: Active Medications Generic Name Dose Route Start Last Admin Trade Name Freq PRN Reason Stop Dose Admin Acetaminophen 650 mg 05/22/19 16:44 05/24/19 14:48 Tylenol PO 650 mg Q4H PRN Administration Headache/Fever or Pain Hydrocodone Bitart/Acetaminophen 2 tab 05/22/19 16:44 05/24/19 01:13 [place] 7.5/325 PO 2 tab Q4H PRN Administration Moderate Pain (4-6) Hydrocodone Bitart/Acetaminophen 1 tab 05/22/19 22:44 05/24/19 11:59 [place] 7.5/325 PO 1 tab Q4H PRN Administration Mild Pain (1-3) Amlodipine Besylate 10 mg 05/23/19 09:00 05/24/19 08:09 Norvasc PO 10 mg DAILY AMBAR Administration Ascorbic Acid 500 mg 05/23/19 09:00 05/24/19 08:10 Vitamin C PO 500 mg DAILY AMBAR Administration Atorvastatin Calcium 10 mg 05/23/19 21:00 05/23/19 20:12 Lipitor PO 10 mg QPM AMBAR Administration Calcium Carbonate 600 mg 05/23/19 09:00 05/24/19 08:10 Caltrate PO 600 mg DAILY AMBAR Administration Carvedilol 6.25 mg 05/22/19 21:00 05/24/19 08:10 Coreg PO 6.25 mg BID AMBAR Administration Cholecalciferol 5,000 units 05/22/19 21:00 05/24/19 08:10 Vitamin D3 PO 5,000 units BID AMBAR Administration Escitalopram Oxalate 20 mg 05/23/19 21:00 05/23/19 20:15 Lexapro PO 20 mg QPM AMBAR Administration Fluticasone Propionate 0 gm 05/22/19 18:15 05/24/19 12:33 Flonase Nasal [place] NASAL 2 sprays DAILY PRN Administration Allergies Gabapentin 600 mg 05/22/19 21:00 05/24/19 14:48 Neurontin PO 600 mg TID AMBAR Administration Sodium Chloride 1,000 mls @ 75 mls/hr 05/22/19 16:45 05/24/19 11:32 Normal Saline 0.9% IV Not Given .[id number] [facility] Insulin Human Lispro 0 units 05/22/19 22:46 05/23/19 16:25 Humalog SC 2 unit .MILD SLIDING SCALE PRN Administration Mild Correctional Scale Lisinopril 2.5 mg 05/23/19 21:00 05/23/19 20:12 Zestril PO 2.5 mg QPM AMBAR Administration Loratadine 10 mg 05/23/19 09:00 05/24/19 08:11 Claritin PO 10 mg DAILY AMBAR Administration Magnesium Oxide 250 mg 05/23/19 21:00 05/23/19 20:11 Magnesium Oxide PO 250 mg QPM AMBAR Administration Metformin HCl 500 mg 05/23/19 08:00 05/24/19 08:09 Glucophage PO 500 mg QAM-WM AMBAR Administration Morphine Sulfate 2 mg 05/22/19 16:44 05/23/19 21:19 Morphine SLOW IVP 2 mg Q1H PRN Administration Severe Pain (7-10) Ondansetron HCl 4 mg 05/22/19 16:44 05/23/19 21:23 Zofran IVP 4 mg Q6H PRN Administration Nausea Pantoprazole Sodium 40 mg 05/23/19 09:00 05/24/19 08:11 Protonix PO 40 mg BID AMBAR Administration Sodium Chloride 10 ml 05/22/19 16:44 05/23/19 01:17 Flush - Normal Saline IVF 10 ml PRN PRN Administration Saline Flush Tizanidine HCl 4 mg 05/22/19 16:44 05/23/19 09:32 Zanaflex PO 4 mg TID PRN Administration Muscle Spasm - Exam General Appearance: NAD, awake alert Eye: PERRL, anicteric sclera ENT: normocephalic atraumatic, no oropharyngeal lesions Neck: supple, symmetric, no JVD, no thyromegaly Heart: RRR, no murmur, no gallops, no rubs, normal peripheral pulses Respiratory: CTAB, no wheezes, no rales, no ronchi Gastrointestinal: soft, non-tender, non-distended, normal bowel sounds, no palpable masses Extremities: no cyanosis, no clubbing, no edema Skin: normal turgor Neurological: CN's grossly intact, no focal deficits, no new deficit Musculoskeletal: normal tone Psychiatric: normal affect, normal behavior, A&O x 3 Hosp A/P (1) Diabetes type 2, controlled Code(s): E11.9 - TYPE 2 DIABETES MELLITUS WITHOUT COMPLICATIONS Status: Chronic Plan: ISS, Metformin, serial accuchecks (2) GERD (gastroesophageal reflux disease) Code(s): K21.9 - GASTRO-ESOPHAGEAL REFLUX DISEASE WITHOUT ESOPHAGITIS Status: Chronic Plan: Continue Protonix 40mg BID (3) Hypertension Code(s): I10 - ESSENTIAL (PRIMARY) HYPERTENSION Status: Chronic Qualifiers: Hypertension type: essential hypertension Qualified Code(s): I10 - Essential (primary) hypertension Plan: Serial monitoring, continue current BP regimen (4) Lumbar stenosis with neurogenic claudication Code(s): M48.062 - SPINAL STENOSIS, LUMBAR REGION WITH NEUROGENIC CLAUDICATION Status: Chronic (5) S/P lumbar laminectomy Code(s): Z98.890 - OTHER SPECIFIED POSTPROCEDURAL STATES Status: Acute Plan: POD #1, pain control, DVT ppx, ambulate with PT - Plan PT/OT, social media content specialist, incentive spirometry, DVT proph w/SCDs Stable currently Continue pain control DVT ppx Continue current BP regimen Likely d/c IVF's in 24h
[2019-05-24] MEDS: Ondansetron PF 4 MG/2 ML Vial IVP PRN (21:03)
[2019-05-24] MEDS: Atorvastatin Calcium 10 MG TAB PO SCH (21:06)
[2019-05-24] MEDS: Lisinopril 2.5 MG TAB PO SCH (21:06)
[2019-05-24] MEDS: Escitalopram Oxalate 20 mg Tablet PO SCH (21:07)
[2019-05-24] MEDS: Magnesium Oxide 250 MG TAB PO SCH (21:07)
[2019-05-25] MEDS: Ondansetron PF 4 MG/2 ML Vial IVP PRN (00:19)
[2019-05-25] MEDS: Sodium Chloride 0.9% 1,000 ML IV SCH ×2 (00:19→11:27)
[2019-05-25] MEDS: HYDROcodone/Acetaminophen 7.5/325 mg Tablet PO PRN ×4 (00:51→23:51)
[2019-05-25] MEDS: Morphine 2 MG/ML SYRINGE SLOW IVP PRN (02:02)
[2019-05-25] MEDS: Acetaminophen 325 MG TAB PO PRN (04:45)
[2019-05-25] MEDS: metFORMIN 500 MG TAB PO SCH (08:31)
[2019-05-25] MEDS: Gabapentin 300 MG CAP PO SCH ×3 (08:32→21:28)
[2019-05-25] MEDS: Loratadine 10 MG TAB PO SCH (08:33)
[2019-05-25] MEDS: Calcium Carbonate 600 MG TAB PO SCH (08:33)
[2019-05-25] MEDS: Ascorbic Acid 500 mg Chewable Tablet PO SCH (08:33)
[2019-05-25] MEDS: Carvedilol 6.25 MG TAB PO SCH ×2 (08:34→21:29)
[2019-05-25] MEDS: Amlodipine 10 MG TAB PO SCH (08:34)
--- NOTE | 2019-05-25 11:31 | PRG ---
DATE OF SERVICE: 05/25/2019 Ms. King is postoperative day 3 following a multilevel lumbar laminectomy and fusion. She has improved in regard to her ability to stand up and is walking with more of an upright posture consistent with improvement in her central canal caliber. She has had resolution of her left leg pain and the only pain she appears to have in her right leg is in her right knee. There is some radicular component to this, but some of it maybe osteoarthritis in the knee. Nevertheless, I am pleased with how she is doing and we will continue to mobilize her. I think it would be prudent to arrange for inpatient rehab, which we have done, and finally, arrange for perhaps one more set of labs before she leaves. Neurologically, she moves all extremities to command without deficit. Job ID: [id number]
[2019-05-25 13:26] LABS: #Basophils 0.1 thou/uL (0.0-0.2); #Eosinphils 0.2 thou/uL (0.0-0.7); #Lymphocytes 1.7 thou/uL (1.20-3.40); #Monocytes 0.9 thou/uL (0.11-0.59); #Neutrophils 7.8 thou/uL (1.40-6.50); %Basophils 0.7 % (0.0-1.0); %Eosinophils 2.3 % (0.0-10.0); %Lymphocytes 15.8 % (21.0-51.0); %Neutrophils 73.2 % (42.0-75.0); Hemoglobin 9.3 g/dL (12.0-16.0); Mean Corpuscular HGB CONC 34.2 g/dL (32.0-36.0); Mean Corpuscular Hemoglobin 30.1 pg (27.0-31.0); Mean Platelet Volume 6.3 fL (7.4-10.4); Platelet Count 334 thou/uL (130-400); RBC Distribution Width 11.4 % (11.5-14.5); White Blood Cell (WBC) Count 10.7 thou/uL (4.8-10.8)
[2019-05-25 13:45] LABS: Anion Gap 12 mmol/L (10-20); BUN (Urea Nitrogen) 7 mg/dL (9.8-20.1); Calc. Creatinine Clearance 93 mL/min (70-130); Calcium 9.6 mg/dL (7.8-10.44); Carbon Dioxide 30 mmol/L (23-31); Chloride 92 mmol/L (98-107); Estimated GFR-MDRD 73; Glucose 185 mg/dL (83-110); Potassium 3.8 mmol/L (3.5-5.1); Sodium 130 mmol/L (136-145)
--- NOTE | 2019-05-25 17:18 | PDOC.HOSPP ---
- Subjective Encounter Date: 05/25/19 Encounter Time: 17:20 Subjective: f/u for hyponatremia and s/p lumbar fusion POD #3. Feels better overall and ambulated in [place]. No CP/SOB. - Objective Vital Signs & Weight: Vital Signs (12 hours) Temp Pulse Resp BP BP Pulse Ox 05/25/19 16:00 98.5 F 82 20 124/71 96 05/25/19 11:00 98.3 F 71 20 97/61 92 L 05/25/19 08:34 120/68 05/25/19 07:58 98.0 F 80 20 120/68 91 L Weight Weight 196 lb 13.965 oz Most Recent Monitor Data Heart Rate from ECG 84 NIBP 142/61 NIBP BP-Mean 85 Respiration from ECG 12 SpO2 94 I&O: 05/24/19 05/25/19 05/26/19 06:59 06:59 06:59 Intake Total 3644 2926 Output Total 3300 3000 Balance 344 -74 Result Diagrams: 05/25/19 13:14 05/25/19 13:14 Additional Labs: Accuchecks 05/25/19 05/25/19 05/25/19 16:08 11:33 05:38 POC Glucose 159 H 127 H 147 H 05/24/19 21:26 POC Glucose 118 H Laboratory Tests 05/23/19 05/23/19 05/25/19 05:41 05:41 13:14 Hgb 10.0 L Neutrophils % 83.9 H 73.2 Sodium 134 L Hospitalist ROS - Medication Medications: Active Medications Generic Name Dose Route Start Last Admin Trade Name Freq PRN Reason Stop Dose Admin Acetaminophen 650 mg 05/22/19 16:44 05/25/19 04:45 Tylenol PO 650 mg Q4H PRN Administration Headache/Fever or Pain Hydrocodone Bitart/Acetaminophen 2 tab 05/22/19 16:44 05/25/19 15:34 [place] 7.5/325 PO 2 tab Q4H PRN Administration Moderate Pain (4-6) Hydrocodone Bitart/Acetaminophen 1 tab 05/22/19 22:44 05/25/19 00:51 [place] 7.5/325 PO 1 tab Q4H PRN Administration Mild Pain (1-3) Amlodipine Besylate 10 mg 05/23/19 09:00 05/25/19 08:34 Norvasc PO 10 mg DAILY AMBAR Administration Ascorbic Acid 500 mg 05/23/19 09:00 05/25/19 08:33 Vitamin C PO Not Given DAILY [facility] Atorvastatin Calcium 10 mg 05/23/19 21:00 05/24/19 21:06 Lipitor PO 10 mg QPM AMBAR Administration Calcium Carbonate 600 mg 05/23/19 09:00 05/25/19 08:33 Caltrate PO 600 mg DAILY AMBAR Administration Carvedilol 6.25 mg 05/22/19 21:00 05/25/19 08:34 Coreg PO 6.25 mg BID AMBAR Administration Cholecalciferol 5,000 units 05/22/19 21:00 05/25/19 08:31 Vitamin D3 PO 5,000 units BID [facility] Administration Escitalopram Oxalate 20 mg 05/23/19 21:00 05/24/19 21:07 Lexapro PO 20 mg QPM AMBAR Administration Fluticasone Propionate 0 gm 05/22/19 18:15 05/24/19 12:33 Flonase Nasal [place] NASAL 2 sprays DAILY PRN Administration Allergies Gabapentin 600 mg 05/22/19 21:00 05/25/19 15:33 Neurontin PO 600 mg TID [facility] Administration Sodium Chloride 1,000 mls @ 75 mls/hr 05/22/19 16:45 05/25/19 11:27 Normal Saline 0.9% IV Not Given .[id number] [facility] Insulin Human Lispro 0 units 05/22/19 22:46 05/23/19 16:25 Humalog SC 2 unit .MILD SLIDING SCALE PRN Administration Mild Correctional Scale Lisinopril 2.5 mg 05/23/19 21:00 05/24/19 21:06 Zestril PO 2.5 mg QPM [facility] Administration Loratadine 10 mg 05/23/19 09:00 05/25/19 08:33 Claritin PO 10 mg DAILY AMBAR Administration Magnesium Oxide 250 mg 05/23/19 21:00 05/24/19 21:07 Magnesium Oxide PO 250 mg QPM AMBAR Administration Metformin HCl 500 mg 05/23/19 08:00 05/25/19 08:31 Glucophage PO 500 mg QAM-WM AMBAR Administration Morphine Sulfate 2 mg 05/22/19 16:44 05/25/19 02:02 Morphine SLOW IVP 2 mg Q1H PRN Administration Severe Pain (7-10) Ondansetron HCl 4 mg 05/22/19 16:44 05/25/19 00:19 Zofran IVP 4 mg Q6H PRN Administration Nausea Pantoprazole Sodium 40 mg 05/23/19 09:00 05/25/19 08:33 Protonix PO 40 mg BID AMBAR Administration Sodium Chloride 10 ml 05/22/19 16:44 05/23/19 01:17 Flush - Normal Saline IVF 10 ml PRN PRN Administration Saline Flush Tizanidine HCl 4 mg 05/22/19 16:44 05/23/19 09:32 Zanaflex PO 4 mg TID PRN Administration Muscle Spasm - Exam General Appearance: NAD, awake alert Eye: PERRL, anicteric sclera ENT: normocephalic atraumatic, no oropharyngeal lesions Neck: supple, symmetric, no JVD, no thyromegaly, no lymphadenopathy Heart: RRR, no murmur, no gallops, no rubs, normal peripheral pulses Respiratory: CTAB, no wheezes, no rales, no ronchi, normal chest expansion Gastrointestinal: soft, non-tender, non-distended, normal bowel sounds, no palpable masses Extremities: no cyanosis, no clubbing, no edema Skin: normal turgor, no lesions Neurological: CN's grossly intact, no focal deficits, no new deficit Psychiatric: normal affect, A&O x 3 Hosp A/P (1) Hyponatremia Code(s): E87.1 - HYPO-OSMOLALITY AND HYPONATREMIA Status: Chronic Plan: Appears to be a chronic condition, encourage regular po dietary intake, serial monitoring (2) Diabetes type 2, controlled Code(s): E11.9 - TYPE 2 DIABETES MELLITUS WITHOUT COMPLICATIONS Status: Chronic Plan: Continue Metformin/ISS (3) GERD (gastroesophageal reflux disease) Code(s): K21.9 - GASTRO-ESOPHAGEAL REFLUX DISEASE WITHOUT ESOPHAGITIS Status: Chronic (4) Hypertension Code(s): I10 - ESSENTIAL (PRIMARY) HYPERTENSION Status: Chronic Qualifiers: Hypertension type: essential hypertension Qualified Code(s): I10 - Essential (primary) hypertension (5) Lumbar stenosis with neurogenic claudication Code(s): M48.062 - SPINAL STENOSIS, LUMBAR REGION WITH NEUROGENIC CLAUDICATION Status: Chronic (6) S/P lumbar laminectomy Code(s): Z98.890 - OTHER SPECIFIED POSTPROCEDURAL STATES Status: Acute Plan: POD #3, pain control, ambulate, DVT ppx - Plan PT/OT, out of bed/ambulate, DVT proph w/SCDs Stable currently Continue pain control DVT ppx Continue current BP regimen Likely d/c IVF's in 24h CM for rehab options AM lab: BMP, H/H
[2019-05-25] MEDS ORDERED: Ketotifen Fumarate 0.025% Ophth Soln 5 ml Bottle EA EYE PRN (21:00)
[2019-05-25] MEDS: Magnesium Oxide 250 MG TAB PO SCH (21:28)
[2019-05-25] MEDS: Lisinopril 2.5 MG TAB PO SCH (21:29)
[2019-05-25] MEDS: Atorvastatin Calcium 10 MG TAB PO SCH (21:30)
[2019-05-25] MEDS: Escitalopram Oxalate 20 mg Tablet PO SCH (21:30)
[2019-05-26] MEDS: Sodium Chloride 0.9% 1,000 ML IV SCH ×2 (01:55→10:33)
[2019-05-26 05:46] LABS: Hemoglobin 7.9 g/dL (12.0-16.0); Platelet Count 296 thou/uL (130-400)
[2019-05-26 06:11] LABS: Anion Gap 9 mmol/L (10-20); BUN (Urea Nitrogen) 7 mg/dL (9.8-20.1); Calc. Creatinine Clearance 110 mL/min (70-130); Calcium 9.4 mg/dL (7.8-10.44); Carbon Dioxide 32 mmol/L (23-31); Chloride 93 mmol/L (98-107); Estimated GFR-MDRD 88; Glucose 124 mg/dL (83-110); Sodium 130 mmol/L (136-145)
[2019-05-26] MEDS: HYDROcodone/Acetaminophen 7.5/325 mg Tablet PO PRN ×3 (06:22→19:55)
[2019-05-26] MEDS: Carvedilol 6.25 MG TAB PO SCH ×2 (08:38→19:59)
[2019-05-26] MEDS: Calcium Carbonate 600 MG TAB PO SCH (08:38)
[2019-05-26] MEDS: metFORMIN 500 MG TAB PO SCH (08:38)
[2019-05-26] MEDS: Loratadine 10 MG TAB PO SCH (08:38)
[2019-05-26] MEDS: Ascorbic Acid 500 mg Chewable Tablet PO SCH ×2 (08:38→08:42)
[2019-05-26] MEDS: Gabapentin 300 MG CAP PO SCH ×3 (08:38→19:59)
[2019-05-26] MEDS: Amlodipine 10 MG TAB PO SCH (08:38)
[2019-05-26] MEDS ORDERED: Dexamethasone 6 MG in Sodium Chloride 0.9% 50 ML IVPB SCH (10:46)
--- NOTE | 2019-05-26 11:05 | PRG ---
DATE OF SERVICE: 05/26/2019 Genoveva King is postoperative day 4, following a multilevel lumbar laminectomy and fusion. She was doing well from a low back pain and lumbar radiculopathy standpoint, but unfortunately has significant tenderness over her patella. I think this is a patellar tendonitis likely related to osteoarthritis and also just prolonged positioning prone, even though we padded this region. Nevertheless, we will give her a dose of Decadron to help with inflammation. Her hemoglobin is 7.9. We will give her 2 units of blood. We are trying to get her to inpatient rehab. Job ID: [id number]
--- NOTE | 2019-05-26 12:17 | PDOC.HOSPP ---
- Subjective Encounter Date: 05/26/19 Encounter Time: 12:11 Subjective: consult for s/p laminectomy with Dr. Forrest. pt is sitting in chair eating lunch when interviewed. reports light headedness and fatigue. was seen just before interview by Dr. forrest @1030 who ordered 2 units of blood due to a low H /H. She had not yet received the blood at the time of interview. pt is not in acute distress and denies SOB, c/p, N/V, ab pain. She complains of only mild back pain at her incision site and right knee pain that started after ambulation with PT yesterday. Her and her have questions about her placement in a half-way facility, specifically how long she would be there. expressed concerns about her not ambulating often enough while in hospital with PT. - Objective Vital Signs & Weight: Vital Signs (12 hours) Temp Pulse Resp BP BP Pulse Ox 05/26/19 09:11 111/68 05/26/19 08:25 98.2 F 73 18 99/63 92 L 05/26/19 03:53 98 F 74 16 107/67 93 L Weight Weight 89.3 kg Most Recent Monitor Data Heart Rate from ECG 84 NIBP 142/61 NIBP BP-Mean 85 Respiration from ECG 12 SpO2 94 I&O: 05/25/19 05/26/19 05/27/19 06:59 06:59 06:59 Intake Total 2926 820 Output Total 3000 1150 Balance -74 -330 Result Diagrams: 05/26/19 05:01 05/26/19 05:01 Additional Labs: Accuchecks 05/26/19 05/26/19 05/25/19 11:39 06:06 20:12 POC Glucose 137 H 129 H 150 H 05/25/19 05/24/19 16:08 06:13 POC Glucose 159 H 134 H Laboratory Tests 05/23/19 05/23/19 05/25/19 05:41 05:41 13:14 Hgb 10.0 L 9.3 L Neutrophils % 83.9 H 73.2 Sodium 134 L 05/25/19 13:14 Hgb Neutrophils % Sodium 130 L Hospitalist ROS - Review of Systems Constitutional: reports: weakness. denies: fever, chills, sweats Respiratory: denies: shortness of breath, SOB with excertion, pleuritic pain Cardiovascular: reports: light headedness. denies: chest pain, edema Gastrointestinal: reports: constipation (last bowel movement x5 days ago.). denies: nausea, vomitting, abdominal pain Genitourinary: denies: dysuria, frequency, incontinence Musculoskeletal: reports: back pain, hand pain (at incision site.), other ( right knee pain) Neurological: reports: weakness - Medication Medications: Active Medications Generic Name Dose Route Start Last Admin Trade Name Freq PRN Reason Stop Dose Admin Acetaminophen 650 mg 05/22/19 16:44 05/25/19 04:45 Tylenol PO 650 mg Q4H PRN Administration Headache/Fever or Pain Hydrocodone Bitart/Acetaminophen 2 tab 05/22/19 16:44 05/26/19 10:36 Loraine 7.5/325 PO 2 tab Q4H PRN Administration Moderate Pain (4-6) Hydrocodone Bitart/Acetaminophen 1 tab 05/22/19 22:44 05/26/19 06:22 Loraine 7.5/325 PO 1 tab Q4H PRN Administration Mild Pain (1-3) Amlodipine Besylate 10 mg 05/23/19 09:00 05/26/19 08:38 Norvasc PO 10 mg DAILY AMBAR Administration Ascorbic Acid 500 mg 05/23/19 09:00 05/26/19 08:42 Vitamin C PO Not Given DAILY AMBAR Atorvastatin Calcium 10 mg 05/23/19 21:00 05/25/19 21:30 Lipitor PO 10 mg QPM AMBAR Administration Calcium Carbonate 600 mg 05/23/19 09:00 05/26/19 08:38 Caltrate PO 600 mg DAILY AMBAR Administration Carvedilol 6.25 mg 05/22/19 21:00 05/26/19 08:38 Coreg PO 6.25 mg BID AMBAR Administration Cholecalciferol 5,000 units 05/22/19 21:00 05/26/19 08:37 Vitamin D3 PO 5,000 units BID AMBAR Administration Escitalopram Oxalate 20 mg 05/23/19 21:00 05/25/19 21:30 Lexapro PO 20 mg QPM AMBAR Administration Fluticasone Propionate 0 gm 05/22/19 18:15 05/24/19 12:33 Flonase Nasal [place] NASAL 2 sprays DAILY PRN Administration Allergies Gabapentin 600 mg 05/22/19 21:00 05/26/19 08:38 Neurontin PO 600 mg TID AMBAR Administration Sodium Chloride 1,000 mls @ 75 mls/hr 05/22/19 16:45 05/26/19 10:33 Normal Saline 0.9% IV Not Given .[id number] [facility] Insulin Human Lispro 0 units 05/22/19 22:46 05/23/19 16:25 Humalog SC 2 unit .MILD SLIDING SCALE PRN Administration Mild Correctional Scale Lisinopril 2.5 mg 05/23/19 21:00 05/25/19 21:29 Zestril PO 2.5 mg QPM AMBAR Administration Loratadine 10 mg 05/23/19 09:00 05/26/19 08:38 Claritin PO 10 mg DAILY AMBAR Administration Magnesium Oxide 250 mg 05/23/19 21:00 05/25/19 21:28 Magnesium Oxide PO 250 mg QPM AMBAR Administration Metformin HCl 500 mg 05/23/19 08:00 05/26/19 08:38 Glucophage PO 500 mg QAM-WM AMBAR Administration Morphine Sulfate 2 mg 05/22/19 16:44 05/25/19 02:02 Morphine SLOW IVP 2 mg Q1H PRN Administration Severe Pain (7-10) Ondansetron HCl 4 mg 05/22/19 16:44 05/25/19 00:19 Zofran IVP 4 mg Q6H PRN Administration Nausea Pantoprazole Sodium 40 mg 05/23/19 09:00 05/26/19 08:38 Protonix PO 40 mg BID AMBAR Administration Sodium Chloride 10 ml 05/22/19 16:44 05/23/19 01:17 Flush - Normal Saline IVF 10 ml PRN PRN Administration Saline Flush Tizanidine HCl 4 mg 05/22/19 16:44 05/23/19 09:32 Zanaflex PO 4 mg TID PRN Administration Muscle Spasm - Exam General Appearance: NAD, awake alert General - other findings: Pale appearing Eye: PERRL, anicteric sclera ENT: normocephalic atraumatic, no oropharyngeal lesions, moist mucosa Neck: supple, symmetric, no JVD, no thyromegaly Heart: RRR, no murmur, no gallops, no rubs, normal peripheral pulses Heart - other findings: S1, S2 Respiratory: CTAB, no wheezes, no rales, no ronchi, normal chest expansion, no tachypnea Gastrointestinal: soft, non-tender, non-distended, no palpable masses, no hepatomegaly, no guarding, no rigidity Extremities: no cyanosis, no clubbing, no edema Skin: normal turgor Skin - other findings: Lumbar incision intact, mild peripheral erythema Musculoskeletal: normal tone, normal strength Musculoskeletal - other findings: Right knee does not show swelling,erythema. not warm to touch. no crepitus Psychiatric: normal affect, normal behavior, A&O x 3 Hosp A/P (1) Postoperative anemia due to acute blood loss Code(s): D62 - ACUTE POSTHEMORRHAGIC ANEMIA Status: Acute Plan: Plan for 2u PRBC's today, serial H/H (2) Hyponatremia Code(s): E87.1 - HYPO-OSMOLALITY AND HYPONATREMIA Status: Chronic Plan: serial monitoring. chronic and stable. continue PO intake. (3) Diabetes type 2, controlled Code(s): E11.9 - TYPE 2 DIABETES MELLITUS WITHOUT COMPLICATIONS Status: Chronic Plan: Glucose stable. chronic. continue Metformin and ISS (4) GERD (gastroesophageal reflux disease) Code(s): K21.9 - GASTRO-ESOPHAGEAL REFLUX DISEASE WITHOUT ESOPHAGITIS Status: Chronic (5) Hypertension Code(s): I10 - ESSENTIAL (PRIMARY) HYPERTENSION Status: Chronic Qualifiers: Hypertension type: essential hypertension Qualified Code(s): I10 - Essential (primary) hypertension (6) Lumbar stenosis with neurogenic claudication Code(s): M48.062 - SPINAL STENOSIS, LUMBAR REGION WITH NEUROGENIC CLAUDICATION Status: Chronic (7) S/P lumbar laminectomy Code(s): Z98.890 - OTHER SPECIFIED POSTPROCEDURAL STATES Status: Acute Plan: POD#4. ambulate, pain control, DVT prophylaxis. (8) Normocytic anemia Code(s): D64.9 - ANEMIA, UNSPECIFIED Status: Acute Plan: acute new onset. consider blood transfusion per recommendation from Dr. Forrest. (9) Knee pain, acute Code(s): M25.569 - PAIN IN UNSPECIFIED KNEE Status: Acute Plan: new onset. Dexamethasone given to decrease inflammation. - Plan plan discussed w/ family, PT/OT, director of social services, out of bed/ambulate, DVT proph w/SCDs Stable currently Plan for 2u PRBC's Avoid anticoagulants WCT for dressing changes CM for rehab options AM lab: BMP, H/H
[2019-05-26] MEDS: Ondansetron PF 4 MG/2 ML Vial IVP PRN (14:26)
[2019-05-26] MEDS: Lisinopril 2.5 MG TAB PO SCH (19:58)
[2019-05-26] MEDS: Magnesium Oxide 250 MG TAB PO SCH (19:59)
[2019-05-26] MEDS: Atorvastatin Calcium 10 MG TAB PO SCH (19:59)
[2019-05-26] MEDS: Escitalopram Oxalate 20 mg Tablet PO SCH (19:59)
[2019-05-26 22:21] LABS: Hemoglobin 10.3 g/dL (12.0-16.0); Platelet Count 328 thou/uL (130-400)
[2019-05-27] MEDS: Sodium Chloride 0.9% 1,000 ML IV SCH ×2 (03:46→14:01)
[2019-05-27 05:25] LABS: Anion Gap 12 mmol/L (10-20); BUN (Urea Nitrogen) 9 mg/dL (9.8-20.1); Calc. Creatinine Clearance 112 mL/min (70-130); Calcium 9.8 mg/dL (7.8-10.44); Carbon Dioxide 30 mmol/L (23-31); Chloride 93 mmol/L (98-107); Estimated GFR-MDRD 90; Glucose 194 mg/dL (83-110); Potassium 4.1 mmol/L (3.5-5.1); Sodium 131 mmol/L (136-145)
[2019-05-27] MEDS: HumaLOG 300 UNITS/3 ML VIAL SC PRN ×3 (06:15→18:04)
[2019-05-27] MEDS: Carvedilol 6.25 MG TAB PO SCH (09:39)
[2019-05-27] MEDS: metFORMIN 500 MG TAB PO SCH (09:40)
[2019-05-27] MEDS: Gabapentin 300 MG CAP PO SCH ×2 (09:40→16:22)
[2019-05-27] MEDS: Loratadine 10 MG TAB PO SCH (09:40)
[2019-05-27] MEDS: Acetaminophen 325 MG TAB PO PRN (09:40)
[2019-05-27] MEDS: Calcium Carbonate 600 MG TAB PO SCH (09:41)
[2019-05-27] MEDS: Amlodipine 10 MG TAB PO SCH (09:41)
[2019-05-27] MEDS: Ascorbic Acid 500 mg Chewable Tablet PO SCH (09:43)
--- NOTE | 2019-05-27 11:03 | PRG ---
DATE OF SERVICE: 05/27/2019 This is Jono Montgomery PA-C dictating a report for Jorge Gardner MD. This is a postoperative recheck. Ms. King is postoperative day #5, having undergone multilevel lumbar laminectomies with fusion. She states she is doing well today. She did receive Decadron and has no significant improvement in her leg pain, especially on the right. She does have some continued right knee pain, but again this is slowly improving. She is sitting up in bed, eating breakfast. She is wearing her LSO brace. I have looked at her incision and there is a little bit of drainage on the dressing, but otherwise her incision is healing well. The patient states she feels as though she has urinary tract infection after having a [place] in place and she has significant urgency with urination, so I will check a UA. Otherwise, the patient is progressing well and she will need to go to rehab. I should note her hemoglobin is improved to 10.3 up from 7. She received 2 units of blood yesterday. Please call with any changes in the patient's neurologic status. Job ID: [id number]
[2019-05-27] MEDS: HYDROcodone/Acetaminophen 7.5/325 mg Tablet PO PRN ×3 (12:35→17:59)
[2019-05-27 14:28] LABS: Bacteria/HPF 2+ HPF (None Seen); Bilirubin Negative (Negative); Blood, Urine Negative (Negative); Clarity Clear (Clear); Glucose, Urine (Dipstick) Normal (Negative); Leukocyte 500 Leu/uL (Negative); Nitrite Negative (Negative); Protein, Urine (Dipstick) Negative (Neg-Trace); RBC/HPF 0-3 HPF (0-3); Squamous Epithelial 0-3 HPF (0-3); Urobilinogen Normal mg/dL (Less than 2); WBC/HPF 21-50 HPF (0-3)
[2019-05-27 14:34] LABS: Urine Culture Reflex Yes Yes
[2019-05-27] MEDS ORDERED: Cipro 250 MG TAB PO SCH ×2 (16:00→20:00)
[2019-05-27 20:35] VITALS: BP 117/66; TEMP 97.8
--- NOTE | 2019-05-29 12:28 | DIS ---
DATE OF ADMISSION: 05/22/2019 DATE OF DISCHARGE: 05/27/2019 DISCHARGE DIAGNOSES: 1. Postoperative anemia due to acute blood loss, status post 2 units of packed red blood cells. 2. Hyponatremia, mild. 3. Diabetes mellitus type 2, stable. 4. Hypertension, stable. 5. Lumbar stenosis with neurogenic claudications, status post lumbar laminectomy. PRIMARY SERVICE ATTENDIN. Dr. Jorge Gardner with Neurosurgical Service. 2. [facility] for medical management. PERTINENT LAB AND X-RAY FINDINGS: Sodium ranged between 130 to 134. CBC showed a hemoglobin ranged between 7.9 to 10.0. Bilateral lower extremity venous Doppler study dated 05/24/2019, showed no evidence for DVT. HOSPITAL COURSE: The patient was initially admitted under the Neurosurgical Service for lumbar stenosis with neurogenic claudication. Undergoing laminectomies and diskectomies in the L3 through L5 distribution. The patient was monitored by the [facility] group for general medical management. The patient was continued on insulin sliding scale in addition to metformin for glycemic control. The patient was also evaluated due to postoperative acute blood loss requiring 2 units of packed red blood cells. The patient received local wound care for her surgical site in addition to physical and occupational therapy. Due to the patient's overall comorbid status and recent surgical intervention, the patient was deemed appropriate candidate for inpatient rehabilitation. The patient clinically stabilized and ready to transfer to [facility] on 05/27/2019. DISCHARGE MEDICATIONS: 1. Tylenol No. 3 300/30 mg one tablet p.o. q.6 hours p.r.n. pain. 2. Amlodipine 10 mg p.o. daily. 3. Vitamin C 500 mg p.o. daily. 4. Enteric-coated aspirin 81 mg p.o. daily. 5. Calcium carbonate 600 mg p.o. daily. 6. Carvedilol 6.25 mg p.o. b.i.d. 7. Vitamin D3 5000 units p.o. b.i.d. 8. Benadryl 10 mg p.o. at bedtime p.r.n. 9. Lexapro 20 mg p.o. at bedtime. 10. [place]-3 fatty acids 1200 mg p.o. daily. 11. Floraphage 1 tablet p.o. at bedtime. 12. Flonase nasal spray 1 spray in each naris daily. 13. Gabapentin 600 mg p.o. t.i.d. 14. Lisinopril 2.5 mg p.o. at bedtime. 15. Claritin 10 mg p.o. daily. 16. Magnesium oxide 250 mg p.o. at bedtime. 17. Metformin 500 mg p.o. daily. 18. Olopatadine one drop to each eye daily. 19. Omeprazole 20 mg p.o. b.i.d. 20. Simvastatin 20 mg p.o. at bedtime. 21. Coenzyme Q10 100 mg p.o. b.i.d. FOLLOWUP: The patient to followup with Dr. Tess Gabriel within 7 to 10 days of discharge. The patient may follow up with Dr. Jorge Gardner with Neurosurgical Service. CONDITION ON DISCHARGE: Stable. ACTIVITY: Per neurosurgical recommendations. DIET: ADA and heart healthy. CODE STATUS: Full. DISPOSITION: Transfer to [facility], [place], [place], 05/27/2019. Job ID: [id number]
== END 2019-05-27 20:40 | DRG 460 ==
LOC: SURG A 05-22 09:45 → EDSTATUS 05-22 13:00 → CCU 05-22 19:03 → SURG B 05-25 01:03
PROVIDERS: ADMIT Surgery; ATTEND Surgery
PROC: 0SG1071 Fusion of 2 or more Lumbar Vertebral Joints with Autologous Tissue Substitute, Posterior Approach, Posterior Column, Open Approach (ICD-10-PCS; principal; 2019-05-24)
PROC: 0ST20ZZ Resection of Lumbar Vertebral Disc, Open Approach (ICD-10-PCS; 2019-05-24)
PROC: 01NB0ZZ Release Lumbar Nerve, Open Approach (ICD-10-PCS; 2019-05-24)
PROC: 4A11X4G Monitoring of Peripheral Nervous Electrical Activity, Intraoperative, External Approach (ICD-10-PCS; 2019-05-24)
DX: M48.062 Spinal stenosis, lumbar region with neurogenic claudication (principal); N39.0 Urinary tract infection, site not specified; D62 Acute posthemorrhagic anemia; E87.1 Hypo-osmolality and hyponatremia; M54.16 Radiculopathy, lumbar region; M43.16 Spondylolisthesis, lumbar region; E11.9 Type 2 diabetes mellitus without complications; K21.9 Gastro-esophageal reflux disease without esophagitis; I10 Essential (primary) hypertension; M17.11 Unilateral primary osteoarthritis, right knee
CPT/HCPCS: 36415; 36416; 36430; 76000; 80048; 81001; 85014; 85018; 85025; 85049; 86850; 86900; 86901; 87086; 93970; C1713; J0690; J1100; J1170; J2270; J2405; J2550; J2704; J3010; J3370; J3490; P9016

== ENCOUNTER 2019-05-18 13:01 | Outpatient (CLI) | payer MEDICARE ==
[2019-05-18 14:04] LABS: Hemoglobin 12.9 g/dL (12.0-16.0); Mean Corpuscular HGB CONC 32.8 g/dL (32.0-36.0); Mean Corpuscular Hemoglobin 28.4 pg (27.0-31.0); Mean Corpuscular Volume 86.4 fL (78.0-98.0); Mean Platelet Volume 6.4 fL (7.4-10.4); Platelet Count 374 thou/uL (130-400); RBC Distribution Width 11.7 % (11.5-14.5); Red Blood Cell (RBC) Count 4.54 mill/uL (4.20-5.40); White Blood Cell (WBC) Count 5.4 thou/uL (4.8-10.8)
[2019-05-18 14:08] LABS: PTT 28.3 SEC (22.9-36.1); Prothrombin Time 13.1 SEC (12.0-14.7)
[2019-05-18 14:19] LABS: Anion Gap 14 mmol/L (10-20); BUN (Urea Nitrogen) 11 mg/dL (9.8-20.1); Calc. Creatinine Clearance 0 mL/min (70-130); Calcium 10.4 mg/dL (7.8-10.44); Carbon Dioxide 25 mmol/L (23-31); Chloride 100 mmol/L (98-107); Estimated GFR-MDRD 70; Glucose 119 mg/dL (83-110); Potassium 4.3 mmol/L (3.5-5.1); Sodium 135 mmol/L (136-145)
== END 2019-05-18 13:02 | disposition home or self-care (01) ==
LOC: LABBT 13:01
PROVIDERS: ATTEND Surgery
DX: Z01.818 Encounter for other preprocedural examination (principal); M54.16 Radiculopathy, lumbar region; M43.16 Spondylolisthesis, lumbar region
CPT/HCPCS: 80048; 85027; 85610; 85730; 93005; 93010

== ENCOUNTER 2019-06-25 13:16 | Outpatient (CLI) | payer MEDICARE ==
--- NOTE | 2019-06-25 13:43 | RAD ---
XR Lumbar Spine 2 Or 3 View HISTORY: Postop evaluation. Patient complained back pain. COMPARISON: 02/02/2018 study. FINDINGS: There is been interval placement of bilateral pedicle screws at L3, L4 and L5 there is a sp ondylolisthesis of L3 on L4 as well as L4 on L5 both of these measure in the 8 mm range. IMPRESSION: Postoperative changes of the spine.
== END 2019-06-25 13:17 | disposition home or self-care (01) ==
LOC: TBSIIMAG 13:16
PROVIDERS: ATTEND Surgery
DX: M54.5 Low back pain (principal); Z98.890 Other specified postprocedural states
CPT/HCPCS: 72100

== ENCOUNTER 2019-07-30 14:29 | Outpatient (CLI) | payer MEDICARE ==
--- NOTE | 2019-07-30 16:17 | MMO ---
Bilateral MAMMO Bilat Screen DDI+REMY. CLINICAL HISTORY: Patient is 73 years old and is seen for screening. The patient has no family history of breast cancer. The patient has no personal history of cancer. VIEWS: The views performed were: bilateral craniocaudal with tomosynthesis and bilateral mediolateral oblique with tomosynthesis. FILMS COMPARED: The present examination has been compared to a prior imaging study performed at [facility] on 07/21/2018. This study has been interpreted with the assistance of computer-aided detection. MAMMOGRAM FINDINGS: There are scattered fibroglandular densities. Benign calcifications are noted bilaterally. There are no suspicious masses, suspicious calcifications, or new areas of architectural distortion. IMPRESSION: THERE IS NO MAMMOGRAPHIC EVIDENCE OF MALIGNANCY. A ROUTINE FOLLOW-UP MAMMOGRAM IN 1 YEAR IS RECOMMENDED. THE RESULTS OF THIS EXAM WERE SENT TO THE PATIENT. ACR BI-RADS Category 2 - Benign finding MAMMOGRAPHY NOTE: 1. A negative mammogram report should not delay a biopsy if a dominant of clinically suspicious mass is present. 2. Approximately 10% to 15% of breast cancers are not detected by mammography. 3. Adenosis and dense breasts may obscure an underlying neoplasm. Reported by: PABLITO AUSTIN MD Electonically Signed: [id number]
== END 2019-07-30 14:30 | disposition home or self-care (01) ==
LOC: BICMAMMO 14:29
PROVIDERS: ATTEND Nurse Practitioner Family
DX: Z12.31 Encounter for screening mammogram for malignant neoplasm of breast (principal)
CPT/HCPCS: 77063; 77067

== ENCOUNTER 2019-10-11 09:54 | Outpatient (CLI) | payer MEDICARE | END 2019-10-11 09:55 | disposition home or self-care (01) | LOC: DTY/OP 09:54 | PROVIDERS: ATTEND Nurse Practitioner Family | DX: E11.29 Type 2 diabetes mellitus with other diabetic kidney complication (principal); E11.65 Type 2 diabetes mellitus with hyperglycemia | CPT/HCPCS: 97802 ==

== ENCOUNTER 2019-11-27 15:43 | Outpatient (CLI) | payer MEDICARE ==
--- NOTE | 2019-11-27 15:57 | RAD ---
LEFT WRIST THREE VIEWS: 11/27/19 HISTORY: Left wrist pain. FINDINGS/IMPRESSION: There are degenerative changes most prominent at the first carpometacarpal joint. No acute fracture o r dislocation or bony destruction is seen. If there is concern for trauma, and patient is not improved, a follow-up exam should be obtained with additional scaphoid views in 7-10 days. POS: TPC
== END 2019-11-27 15:44 | disposition home or self-care (01) ==
LOC: RAD-FRANK 15:43
PROVIDERS: ATTEND Nurse Practitioner Family
DX: S69.92XA Unspecified injury of left wrist, hand and finger(s), initial encounter (principal); M18.12 Unilateral primary osteoarthritis of first carpometacarpal joint, left hand

== ENCOUNTER 2019-12-05 10:48 | Outpatient (CLI) | payer MEDICARE ==
--- NOTE | 2019-12-05 11:26 | RAD ---
Exam: Left wrist 3 views: HISTORY: Injury, pain, fall COMPARISON: 11/27/2019 FINDINGS: Minimal buckling type fracture through the distal radial metaphysis with some slight angulation. Arth rosis changes of the trapezium first metacarpal joint. IMPRESSION: Distal radial fracture with evidence for some healing. Very mild angulation.
== END 2019-12-05 10:49 | disposition home or self-care (01) ==
LOC: BICRAD 10:48
PROVIDERS: ATTEND Nurse Practitioner Family
DX: S69.92XA Unspecified injury of left wrist, hand and finger(s), initial encounter (principal); S52.502D Unspecified fracture of the lower end of left radius, subsequent encounter for closed fracture with routine healing; M21.832 Other specified acquired deformities of left forearm

== ENCOUNTER 2020-08-01 08:39 | Outpatient (CLI) | payer MEDICARE ==
--- NOTE | 2020-08-01 09:16 | MMO ---
Bilateral MAMMO Bilat Screen DDI+REMY. CLINICAL HISTORY: Patient is 74 years old and is seen for screening. The patient has no family history of breast cancer. The patient has no personal history of cancer. VIEWS: The views performed were: bilateral craniocaudal with tomosynthesis and bilateral mediolateral oblique with tomosynthesis. FILMS COMPARED: The present examination has been compared to prior imaging studies performed at [facility] on 07/20/2017, and at [facility] on 06/04/2016, 07/21/2018 and 07/30/2019. This study has been interpreted with the assistance of computer-aided detection. MAMMOGRAM FINDINGS: There are scattered fibroglandular densities. There is an area of architectural distortion seen in the CC view only seen in the sub-areolar region of the left breast. In the right breast, there are no suspicious masses, calcifications or areas of architectural distortion. IMPRESSION: AREA OF ARCHITECTURAL DISTORTION IN THE LEFT BREAST REQUIRES ADDITIONAL EVALUATION. RECOMMEND DIAGNOSTIC MAMMOGRAM. ULTRASOUND MAY ALSO PROVE USEFUL AT RECALL. THE RESULTS OF THIS EXAM WERE SENT TO THE PATIENT. ACR BI-RADS Category 0 - Incomplete: Need additional imaging evaluation. [facility] will notify the patient of the need for additional imaging services. MAMMOGRAPHY NOTE: 1. A negative mammogram report should not delay a biopsy if a dominant of clinically suspicious mass is present. 2. Approximately 10% to 15% of breast cancers are not detected by mammography. 3. Adenosis and dense breasts may obscure an underlying neoplasm. Reported by: ANGELA CARPENTER MD Electonically Signed: [id number]
== END 2020-08-01 08:40 | disposition home or self-care (01) ==
LOC: BICMAMMO 08:39
PROVIDERS: ATTEND Nurse Practitioner Family
DX: Z12.31 Encounter for screening mammogram for malignant neoplasm of breast (principal); N64.89 Other specified disorders of breast
CPT/HCPCS: 77063; 77067

== ENCOUNTER 2020-08-08 09:01 | Outpatient (CLI) | payer MEDICARE ==
--- NOTE | 2020-08-08 09:47 | MMO ---
Left Breast MAMMO Unilat Diag DDI LT+REMY. CLINICAL HISTORY: Patient is 74 years old and is seen for additional evaluation requested at current screening. The patient has no family history of breast cancer. The patient has no personal history of cancer. VIEWS: The views performed were: left craniocaudal spot compression with tomosynthesis and left mediolateral with tomosynthesis. FILMS COMPARED: The present examination has been compared to prior imaging studies performed at [facility] on 07/20/2017, and at [facility] on 07/21/2018, 07/30/2019 and 08/01/2020. This study has been interpreted with the assistance of computer-aided detection. MAMMOGRAM FINDINGS: There are scattered fibroglandular densities. Finding 1: There are stable benign appearing calcifications seen in the left breast. Finding 2: There is a stable area of architectural distortion seen in the sub-areolar region of the left breast. There are no suspicious masses, suspicious calcifications, or new areas of architectural distortion. IMPRESSION: THERE IS NO MAMMOGRAPHIC EVIDENCE OF MALIGNANCY. A ROUTINE FOLLOW-UP MAMMOGRAM IN 1 YEAR IS RECOMMENDED. THE RESULTS OF THIS EXAM WERE SENT TO THE PATIENT. ACR BI-RADS Category 2 - Benign finding MAMMOGRAPHY NOTE: 1. A negative mammogram report should not delay a biopsy if a dominant of clinically suspicious mass is present. 2. Approximately 10% to 15% of breast cancers are not detected by mammography. 3. Adenosis and dense breasts may obscure an underlying neoplasm. Reported by: SILVA KENT MD Electonically Signed: [id number]
== END 2020-08-08 09:02 | disposition home or self-care (01) ==
LOC: BICMAMMO 09:01
PROVIDERS: ATTEND Nurse Practitioner Family
DX: N64.89 Other specified disorders of breast (principal)
CPT/HCPCS: 77065; G0279

== ENCOUNTER 2021-08-14 08:57 | Outpatient (CLI) | payer MEDICARE | END 2021-08-14 08:58 | disposition home or self-care (01) | LOC: BICMAMMO 08:57 | PROVIDERS: ATTEND Nurse Practitioner Family | DX: Z12.31 Encounter for screening mammogram for malignant neoplasm of breast (principal); Z13.820 Encounter for screening for osteoporosis; M85.851 Other specified disorders of bone density and structure, right thigh; M85.852 Other specified disorders of bone density and structure, left thigh | CPT/HCPCS: 77063; 77067; 77080 ==

== ENCOUNTER 2022-04-26 11:43 | Outpatient (CLI) | payer MEDICARE ==
[2022-04-26 13:33] LABS: Hemoglobin 12.9 g/dL (12.0-15.5); Mean Corpuscular HGB CONC 33.9 g/dL (32.0-36.0); Mean Corpuscular Hemoglobin 30.9 pg (27.0-33.0); Mean Corpuscular Volume 90.9 fl (81.6-98.3); Mean Platelet Volume 9.2 fl (7.4-10.4); Platelet Count 398 10x3/uL (150-450); RBC Distribution Width 12.1 % (11.5-14.5); Red Blood Cell (RBC) Count 4.18 10x6/uL (3.90-5.03); White Blood Cell (WBC) Count 8.1 10x3/uL (3.5-10.5)
[2022-04-26 13:53] LABS: Anion Gap 12 mmol/L (10-20); BUN (Urea Nitrogen) 12 mg/dL (9.8-20.1); Calc. Creatinine Clearance 0 mL/min (70-130); Calcium 9.9 mg/dL (7.8-10.44); Carbon Dioxide 24 mmol/L (23-31); Chloride 101 mmol/L (98-107); Estimated GFR 75; Glucose 182 mg/dL (83-110); Potassium 4.3 mmol/L (3.5-5.1); Sodium 133 mmol/L (136-145)
== END 2022-04-26 11:44 | disposition home or self-care (01) ==
LOC: LABBT 11:43
PROVIDERS: ATTEND Specialist
DX: Z01.818 Encounter for other preprocedural examination (principal); H72.90 Unspecified perforation of tympanic membrane, unspecified ear; H91.91 Unspecified hearing loss, right ear; H69.81 Other specified disorders of Eustachian tube, right ear; Z20.822 Contact with and (suspected) exposure to COVID-19
CPT/HCPCS: 80048; 85027; 87811; 93005; 93010

== ENCOUNTER 2022-04-29 10:54 | Day surgery (SDC) | payer MEDICARE ==
[2022-04-28 09:49] VITALS: BMI 29.6
[2022-04-29] MEDS ORDERED: EPINEPHrine 1 MG/ML AMP ONE (12:18)
[2022-04-29] MEDS ORDERED: fentaNYL Citrate/PF 100 MCG/2 ML SYRINGE ONE (12:47)
[2022-04-29] MEDS ORDERED: Famotidine/PF 20 mg/2ml Vial ONE (12:47)
[2022-04-29] MEDS ORDERED: PROPOFOL 200 MG/20 ML VIAL ONE (12:54)
[2022-04-29] MEDS ORDERED: Rocuronium Bromide 10 MG/ML (10ML VIAL) ONE (12:54)
[2022-04-29] MEDS ORDERED: Glycopyrrolate 0.2 MG/ML 5 ML SYRINGE ONE (12:54)
[2022-04-29] MEDS ORDERED: Ondansetron PF 4 MG/2 ML Vial ONE (12:54)
[2022-04-29] MEDS ORDERED: Neostigmine Methylsulfate 3 MG/3 ML SYRINGE ONE (12:54)
[2022-04-29] MEDS ORDERED: Lidocaine 1% PF 5 ML VIAL ONE (12:54)
== END 2022-04-29 16:04 | disposition home or self-care (01) ==
LOC: SDC 10:54
PROVIDERS: ATTEND Specialist
PROC: 09U707Z Supplement Right Tympanic Membrane with Autologous Tissue Substitute, Open Approach (ICD-10-PCS; principal; 2022-04-29)
DX: H72.01 Central perforation of tympanic membrane, right ear (principal); H69.81 Other specified disorders of Eustachian tube, right ear; I10 Essential (primary) hypertension; E78.5 Hyperlipidemia, unspecified; E11.9 Type 2 diabetes mellitus without complications; K21.9 Gastro-esophageal reflux disease without esophagitis; Z79.82 Long term (current) use of aspirin; Z79.84 Long term (current) use of oral hypoglycemic drugs; Z88.8 Allergy status to other drugs, medicaments and biological substances; Z79.899 Other long term (current) drug therapy
CPT/HCPCS: J0171; J2405; J2704; S0028

== ENCOUNTER 2022-07-01 11:37 | Outpatient (CLI) | payer MEDICARE | END 2022-07-01 11:38 | disposition home or self-care (01) | LOC: RAD 11:37 | PROVIDERS: ATTEND Internal Medicine Rheumatology | DX: M81.0 Age-related osteoporosis without current pathological fracture (principal); M47.814 Spondylosis without myelopathy or radiculopathy, thoracic region | CPT/HCPCS: 72072 ==

== ENCOUNTER 2022-09-09 09:04 | Outpatient (CLI) | payer MEDICARE | END 2022-09-09 09:05 | disposition home or self-care (01) | LOC: BICMAMMO 09:04 | PROVIDERS: ATTEND Nurse Practitioner Family | DX: Z12.31 Encounter for screening mammogram for malignant neoplasm of breast (principal) | CPT/HCPCS: 77063; 77067 ==

== ENCOUNTER 2023-03-24 08:11 | Inpatient (IN) | payer MEDICARE, OTHER ==
[2023-03-24 10:59] LABS: #Basophils 0.1 thou/uL (0.0-0.2); #Eosinphils 0.2 thou/uL (0.0-0.7); #Monocytes 0.5 thou/uL (0.11-0.59); #Neutrophils 3.6 thou/uL (1.40-6.50); %Basophils 0.9 % (0.0-1.0); %Eosinophils 3.8 % (0.0-10.0); %Lymphocytes 23.1 % (21.0-51.0); %Monocytes 8.7 % (0.0-10.0); Hemoglobin 13.1 g/dL (12.0-16.0); Mean Corpuscular HGB CONC 32.9 g/dL (32.0-36.0); Mean Corpuscular Hemoglobin 30.2 pg (27.0-31.0); Mean Corpuscular Volume 91.7 fl (78.0-98.0); Mean Platelet Volume 8.4 fL (7.4-10.4); Platelet Count 283 10x3/uL (130-400); RBC Distribution Width 12.4 % (11.5-14.5); Red Blood Cell (RBC) Count 4.34 mill/uL (4.20-5.40); White Blood Cell (WBC) Count 5.8 10x3/uL (4.8-10.8)
[2023-03-24] MEDS ORDERED: Morphine 4 MG/ML VIAL ONE ×3 (11:03→15:54)
[2023-03-24 11:12] LABS: INR-International Normal Ratio 1.1; PTT 29.3 sec (22.9-36.1); Prothrombin Time 14.2 sec (12.0-14.7)
[2023-03-24] MEDS ORDERED: Ondansetron PF 4 MG/2 ML Vial ONE (11:14)
[2023-03-24 11:24] LABS: ALT (SGPT) 14 U/L (8-55); AST (SGOT) 16 U/L (5-34); Alkaline Phosphatase 43 U/L (40-110); Anion Gap 12 mmol/L (10-20); BUN (Urea Nitrogen) 6 mg/dL (9.8-20.1); Bilirubin, Total 0.4 mg/dL (0.2-1.2); Calc. Creatinine Clearance 0 mL/min (70-130); Calcium 9.7 mg/dL (7.8-10.44); Carbon Dioxide 24 mmol/L (23-31); Chloride 104 mmol/L (98-107); Estimated GFR 84; Globulin 2.8 g/dL (2.4-3.5); Glucose 136 mg/dL (83-110); Protein, Total 6.8 g/dL (5.8-8.1); Sodium 136 mmol/L (136-145)
[2023-03-24 18:38] VITALS: BMI 30.2
[2023-03-24] MEDS ORDERED: Ondansetron ODT 4 MG TAB PO PRN (19:26)
[2023-03-24] MEDS ORDERED: Dextrose 5% in Water 1,000 ML IV PRN (19:26)
[2023-03-24] MEDS ORDERED: Senokot S 8.6-50 MG TAB PO PRN (19:26)
[2023-03-24] MEDS ORDERED: Acetaminophen 325 MG TAB PO PRN (19:26)
[2023-03-24] MEDS ORDERED: Acetaminophen 650 MG Suppository PR PRN (19:26)
[2023-03-24] MEDS ORDERED: Ondansetron PF 4 MG/2 ML Vial IVP PRN (19:26)
[2023-03-24] MEDS ORDERED: Guaifenesin DM 100-10/5 ML UDCUP PO PRN ×2 (19:26→19:50)
[2023-03-24] MEDS ORDERED: Dextrose 50% Abboject 50 ML SYRINGE SLOW IVP PRN (19:26)
[2023-03-24] MEDS ORDERED: HumaLOG 300 UNITS/3 ML VIAL SC PRN ×2 (19:26)
[2023-03-24] MEDS ORDERED: Glucagon 1 MG/ML KIT IM PRN (19:26)
[2023-03-24] MEDS ORDERED: CEFAZOLIN 2 GM in Sodium Chloride 0.9% 100 ML IVPB SCH (19:45)
[2023-03-24] MEDS: HYDROcodone/Acetaminophen 7.5/325 mg Tablet PO PRN (19:50)
[2023-03-24] MEDS: Gabapentin 300 MG CAP PO SCH (19:50)
[2023-03-24] MEDS ORDERED: Famotidine 20 MG TAB PO SCH (21:00)
[2023-03-24] MEDS: Morphine 2 MG/ML VIAL SLOW IVP PRN (22:15)
[2023-03-24] MEDS: tiZANidine HCl 4 MG TAB PO SCH (22:16)
[2023-03-25] MEDS: Morphine 2 MG/ML VIAL SLOW IVP PRN (04:37)
[2023-03-25 05:23] LABS: #Basophils 0.1 thou/uL (0.0-0.2); #Eosinphils 0.2 thou/uL (0.0-0.7); #Monocytes 0.7 thou/uL (0.11-0.59); #Neutrophils 3.1 thou/uL (1.40-6.50); %Basophils 0.9 % (0.0-1.0); %Eosinophils 3.5 % (0.0-10.0); %Monocytes 11.7 % (0.0-10.0); %Neutrophils 54.6 % (42.0-75.0); Hemoglobin 12.7 g/dL (12.0-16.0); Mean Corpuscular HGB CONC 32.6 g/dL (32.0-36.0); Mean Corpuscular Hemoglobin 30.1 pg (27.0-31.0); Mean Corpuscular Volume 92.4 fl (78.0-98.0); Mean Platelet Volume 8.6 fL (7.4-10.4); Platelet Count 287 10x3/uL (130-400); RBC Distribution Width 12.2 % (11.5-14.5); Red Blood Cell (RBC) Count 4.22 mill/uL (4.20-5.40); White Blood Cell (WBC) Count 5.7 10x3/uL (4.8-10.8)
[2023-03-25 05:48] LABS: Anion Gap 10 mmol/L (10-20); BUN (Urea Nitrogen) 6 mg/dL (9.8-20.1); Calc. Creatinine Clearance 80 mL/min (70-130); Calcium 9.4 mg/dL (7.8-10.44); Carbon Dioxide 27 mmol/L (23-31); Chloride 103 mmol/L (98-107); Estimated GFR 87; Glucose 120 mg/dL (83-110); Potassium 4.4 mmol/L (3.5-5.1); Sodium 136 mmol/L (136-145)
[2023-03-25] MEDS: tiZANidine HCl 4 MG TAB PO SCH ×3 (06:36→20:54)
[2023-03-25] MEDS ORDERED: Fluticasone Propionate Nasal Spray 16 gm Bottle NASAL PRN (07:20)
[2023-03-25] MEDS ORDERED: fentaNYL 50 mcg/mL 1 mL Vial ONE ×3 (08:13→10:58)
[2023-03-25] MEDS: Fish Oil 1,000 MG CAP PO SCH (08:56)
[2023-03-25] MEDS: Ascorbic Acid 500 mg Chewable Tablet PO SCH (08:56)
[2023-03-25] MEDS: CO Q-10 CAPSULE 100 MG PO SCH ×2 (08:57→20:49)
[2023-03-25] MEDS: metFORMIN 500 MG TAB PO SCH (08:57)
[2023-03-25] MEDS ORDERED: Thrombin 5000 UNITS/5 ML VIAL ONE (09:00)
[2023-03-25] MEDS: Carvedilol 6.25 MG TAB PO SCH ×2 (09:00→20:53)
[2023-03-25] MEDS: Amlodipine 10 MG TAB PO SCH (09:00)
[2023-03-25] MEDS ORDERED: Bupivacaine HCl 0.5%/Epinephrine 1:200,000/PF 30 ml Vial ONE (09:00)
[2023-03-25] MEDS ORDERED: Sodium Chloride 0.9% 100 ML ONE (09:03)
[2023-03-25] MEDS ORDERED: CEFAZOLIN 2 GM VIAL ONE (09:03)
[2023-03-25] MEDS ORDERED: Lidocaine 1% PF 5 ML VIAL ONE (09:22)
[2023-03-25] MEDS ORDERED: Rocuronium Bromide 10 MG/ML (10ML VIAL) ONE (09:22)
[2023-03-25] MEDS ORDERED: PHENYLEPHRINE-NS 100 MCG/ML 10 ML SYRINGE ONE (09:22)
[2023-03-25] MEDS ORDERED: PROPOFOL 200 MG/20 ML VIAL ONE (09:22)
[2023-03-25] MEDS ORDERED: Ondansetron PF 4 MG/2 ML Vial ONE (09:22)
[2023-03-25] MEDS ORDERED: Dexamethasone 20 MG/5 ML VIAL ONE (09:22)
[2023-03-25] MEDS ORDERED: SUGAMMADEX SODIUM 200 MG/2 ML VIAL ONE (10:19)
[2023-03-25] MEDS ORDERED: HYDROmorphone 0.5 MG/0.5 ML SYRINGE ONE (11:07)
[2023-03-25] MEDS ORDERED: HYDROmorphone 2 MG/ML VIAL SLOW IVP PRN (11:16)
[2023-03-25] MEDS ORDERED: Promethazine HCl 25 MG/ML VIAL IM PRN (11:16)
[2023-03-25] MEDS ORDERED: Ondansetron HCl/PF 4 MG/2 ML Vial IVP PRN (11:16)
[2023-03-25] MEDS ORDERED: Meperidine HCl/PF 25 MG/ML VIAL ONE (11:19)
[2023-03-25] MEDS ORDERED: HYDROmorphone 2 MG/ML VIAL ONE (11:19)
[2023-03-25] MEDS: Sodium Chloride 0.9% 1,000 ML IV SCH (15:11)
[2023-03-25] MEDS: CEFAZOLIN 2 GM in Sodium Chloride 0.9% 100 ML IVPB SCH (17:50)
[2023-03-25] MEDS: Gabapentin 300 MG CAP PO SCH (20:52)
[2023-03-25] MEDS: HYDROcodone/Acetaminophen 7.5/325 mg Tablet PO PRN (20:54)
[2023-03-25] MEDS ORDERED: Magnesium Oxide 250 MG TAB PO SCH (21:00)
[2023-03-25] MEDS ORDERED: Escitalopram Oxalate 20 mg Tablet PO SCH (21:00)
[2023-03-25] MEDS ORDERED: Progesterone,Micronized 100 MG CAP PO SCH (21:00)
[2023-03-25] MEDS ORDERED: Atorvastatin Calcium 10 MG TAB PO SCH (21:00)
[2023-03-26] MEDS: CEFAZOLIN 2 GM in Sodium Chloride 0.9% 100 ML IVPB SCH (01:57)
[2023-03-26] MEDS: Sodium Chloride 0.9% 1,000 ML IV SCH ×2 (02:17→13:46)
[2023-03-26] MEDS: tiZANidine HCl 4 MG TAB PO SCH ×2 (06:39→13:56)
[2023-03-26] MEDS: Ascorbic Acid 500 mg Chewable Tablet PO SCH (08:35)
[2023-03-26] MEDS: Amlodipine 10 MG TAB PO SCH (08:35)
[2023-03-26] MEDS: metFORMIN 500 MG TAB PO SCH (08:35)
[2023-03-26] MEDS: CO Q-10 CAPSULE 100 MG PO SCH (08:35)
[2023-03-26] MEDS: Fish Oil 1,000 MG CAP PO SCH (08:35)
[2023-03-26] MEDS: Carvedilol 6.25 MG TAB PO SCH (08:35)
[2023-03-26 11:47] VITALS: TEMP 98.5
[2023-03-26 15:31] VITALS: BP 129/72
== END 2023-03-26 15:20 | disposition home or self-care (01) | DRG 516 ==
LOC: ERS 08:11 → SURG A 16:05
PROVIDERS: ADMIT Emergency Medicine; ATTEND Internal Medicine
PROC: 01NB0ZZ Release Lumbar Nerve, Open Approach (ICD-10-PCS; principal; 2023-03-26)
DX: M48.062 Spinal stenosis, lumbar region with neurogenic claudication (principal); G95.20 Unspecified cord compression; I10 Essential (primary) hypertension; E78.5 Hyperlipidemia, unspecified; E11.9 Type 2 diabetes mellitus without complications; K21.9 Gastro-esophageal reflux disease without esophagitis; G62.9 Polyneuropathy, unspecified; M54.16 Radiculopathy, lumbar region; E66.9 Obesity, unspecified; F32.A Depression, unspecified; G89.29 Other chronic pain; Z98.890 Other specified postprocedural states; Z88.8 Allergy status to other drugs, medicaments and biological substances; Z79.899 Other long term (current) drug therapy; Z79.84 Long term (current) use of oral hypoglycemic drugs; Z79.82 Long term (current) use of aspirin; Z68.30 Body mass index [BMI] 30.0-30.9, adult
CPT/HCPCS: 36415; 36416; 71045; 72131; 80048; 80053; 84484; 85025; 85610; 85730; 93005; 96374; 96375; 96376; J1100; J1170; J2175; J2270; J2272; J2405; J2704; J3010; J3490

== ENCOUNTER 2023-08-12 09:36 | Outpatient (CLI) | payer MEDICARE, OTHER | END 2023-08-12 09:37 | disposition home or self-care (01) | LOC: BICMAMMO 09:36 | PROVIDERS: ATTEND Nurse Practitioner Family | DX: N64.4 Mastodynia (principal) | CPT/HCPCS: 77066; G0279 ==

== ENCOUNTER 2023-10-28 11:12 | Outpatient (CLI) | payer MEDICARE, OTHER | END 2023-10-28 11:13 | disposition home or self-care (01) | LOC: BICRAD 11:12 | PROVIDERS: ATTEND Nurse Practitioner Family | DX: M67.40 Ganglion, unspecified site (principal) ==

== ENCOUNTER 2024-03-14 09:19 | Outpatient (CLI) | payer MEDICARE, OTHER | END 2024-03-14 09:20 | disposition home or self-care (01) | LOC: BICMAMMO 09:19 | PROVIDERS: ATTEND Internal Medicine Rheumatology | DX: M81.0 Age-related osteoporosis without current pathological fracture (principal); M85.851 Other specified disorders of bone density and structure, right thigh; M85.852 Other specified disorders of bone density and structure, left thigh | CPT/HCPCS: 77080 ==

== ENCOUNTER 2024-08-17 10:44 | Outpatient (CLI) | payer MEDICARE | END 2024-08-17 10:45 | disposition home or self-care (01) | LOC: BICMAMMO 10:44 | PROVIDERS: ATTEND Nurse Practitioner Family | DX: Z12.31 Encounter for screening mammogram for malignant neoplasm of breast (principal) | CPT/HCPCS: 77063; 77067 ==

== ENCOUNTER 2025-03-26 13:21 | Outpatient (CLI) | payer MEDICARE | END 2025-03-26 13:22 | disposition home or self-care (01) | LOC: BICMAMMO 13:21 | PROVIDERS: ATTEND Internal Medicine Rheumatology | DX: M81.0 Age-related osteoporosis without current pathological fracture (principal); M85.851 Other specified disorders of bone density and structure, right thigh; M85.852 Other specified disorders of bone density and structure, left thigh | CPT/HCPCS: 77080 ==

== ENCOUNTER 2025-08-16 14:03 | Outpatient (CLI) | payer MEDICARE | END 2025-08-16 14:04 | disposition home or self-care (01) | LOC: CT 14:03 | PROVIDERS: ATTEND Specialist | DX: R09.81 Nasal congestion (principal) ==